=== PATIENT | female | born 1950 | race African-American/Black ===

== ENCOUNTER 2017-11-05 23:40 | Emergency (ER) | payer MEDICARE, MEDICAID ==
--- NOTE | 2017-11-06 00:11 | ER Document Report ---
ED General - General Chief Complaint: Palpitations Stated Complaint: BREATHING TROUBLE Time Seen by Provider: 11/05/17 23:50 Notes: Patient is a 67-year-old female with a past medical history of congestive heart failure, hypertension, who presents with palpitations and chest pain. The patient reports that the symptoms started approximately 1 hour prior to arrival but have now completely resolved spontaneously. The patient is a very difficult historian, is not unfamiliar with many of the details her past medical history. She is visiting here from [place]. She denies currently at the time of my assessment any chest pain, shortness of breath, nausea or vomiting. She states earlier the palpitations were a severe sensation of palpitations in her chest with associated throat burning and tightening in her chest. Nothing improves or worsens her symptoms when present. The patient is uncertain of whether or not she has been told that she has atrial fibrillation in the past. She has not contacted her general doctor regarding today's concerns. TRAVEL OUTSIDE OF THE [place] IN LAST 30 DAYS: No - Related Data Allergies/Adverse Reactions: No Known Allergies Allergy (Verified 11/05/17 23:55) Past Medical History - General Information source: Patient, Relative - Social History Smoking Status: Never Smoker Frequency of alcohol use: None Drug Abuse: None Lives with: Family Family History: Reviewed & Not Pertinent Review of Systems - Review of Systems Notes: Constitutional: Negative for fever. HENT: Negative for sore throat. Eyes: Negative for visual changes. Cardiovascular: Positive for chest pain and palpitations Respiratory: Positive for shortness of breath. Gastrointestinal: Negative for abdominal pain, vomiting or diarrhea. Genitourinary: Negative for dysuria. Musculoskeletal: Negative for back pain. Skin: Negative for rash. Neurological: Negative for headaches, weakness or numbness. 10 point ROS negative except as marked above and in HPI. Physical Exam - Vital signs Vitals: Resp BP Pulse Ox 22 H 156/68 H 98 11/06/17 00:03 11/06/17 00:03 11/06/17 00:03 Interpretation: Hypertensive Notes: PHYSICAL EXAMINATION: GENERAL: Well-appearing, well-nourished and in no acute distress. HEAD: Atraumatic, normocephalic. EYES: Pupils equal round and reactive to light, extraocular movements intact, sclera anicteric, conjunctiva are normal. ENT: nares patent, oropharynx clear without exudates. Moist mucous membranes. NECK: Normal range of motion, supple without lymphadenopathy LUNGS: Breath sounds clear to auscultation bilaterally and equal. No wheezes rales or rhonchi. HEART: Regular rate and rhythm without murmurs ABDOMEN: Soft, nontender, normoactive bowel sounds. No guarding, no rebound. No masses appreciated. EXTREMITIES: Normal range of motion, no pitting or edema. No cyanosis. NEUROLOGICAL: No focal neurological deficits. Moves all extremities spontaneously and on command. PSYCH: Normal mood, normal affect. SKIN: Warm, Dry, normal turgor, no rashes or lesions noted. Course - Re-evaluation Re-evalutation: 11/06/17 00:10 Presentation is consistent with paroxysmal atrial fibrillation as patient did come in and acute A. fib, confirmed on initial EKG at the time I went to see the patient though she had converted to normal sinus rhythm and her symptoms had also completely resolved. The patient states that she has been told that she has atrial fibrillation in the past but review of her medications shows that she is not on any anticoagulation nor on any rate control agents that would indicate this diagnosis or at least treatment of the diagnosis. She does carry diagnosis of congestive heart failure, hypertension, but no known history of coronary artery disease or PR. She does have peripheral vascular disease and had a stent placed in her right leg. Patient is currently symptomatic when I assess her. However, patient very recently converted into normal sinus rhythm became a symptomatic. She will receive an initial troponin a delta troponin. Will continue to monitor on telemetry during that time to ensure that she does not go back into atrial fibrillation. 11/06/17 03:47 Repeat troponin has elevated likely demand mediated although could be ischemic in origin. The patient had a CT of the chest performed because on initial chest x-ray showing a possible mass in the left lung. 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 I have contacted [facility] to speak with cardiothoracic surgery for guidance in what should be done in regards to this finding. The patient will require hospitalization due to up trending her troponin. 11/06/17 05:26 Patient has been discussed at length with the cardiothoracic surgeon at [facility] Dr. Carl.. He states that although this is not an emergency, this does need to be followed up with relative pace as an outpatient. I then went and spoke to the patient at length updated her on the diagnosis as well as her elevated troponin. I then spoke to her daughter on the phone. We reviewed all options and the family would like to be transferred to [facility] for definitive management both of her elevated troponin in the setting of A. fib with RVR as well as the new diagnosis of a left pulmonary arterial aneurysm. I have again paged out to [facility] and awaiting a callback for transfer. 11/06/17 05:34 I discussed again with [facility] transfer and Dr. Carl has accepted the patient. - Vital Signs Vital signs: Temp Pulse Resp BP Pulse Ox 97.4 F 18 152/67 H 97 11/06/17 04:00 11/06/17 05:01 11/06/17 05:01 11/06/17 05:01 - Laboratory Result Diagrams: 11/06/17 00:05 11/06/17 00:05 Laboratory results interpreted by me: 11/06/17 00:05 Chloride 109 H BUN 24 H Est GFR (Non-Af Amer) 54 L AST 60 H ALT 58 H - Diagnostic Test Radiology reviewed: Reports reviewed - EKG Interpretation by Me Additional EKG results interpreted by me: 11/06/17 03:48 EKG 1: Atrial fibrillation with rapid ventricular response. Rate 116. No ST elevations or depressions. LVH. EKG 2: Sinus rhythm. Rate 67. No ST elevations or depressions. QTC is 503. Critical Care Note - Critical Care Note Total time excluding time spent on procedures (mins): 38 Comments: Critical care time spent obtaining history from patient or surrogate, discussions with consultants, development of treatment plan with patient or surrogate, examination of patient, ordering and performing treatments and interventions, ordering and review of laboratory studies, re-evaluation of patient's condition, ordering and review of radiographic studies and review of old charts Discharge - Discharge Clinical Impression: Elevated troponin, Atrial fibrillation with rapid ventricular response, Pulmonary artery aneurysm Condition: Fair Disposition: [facility] Referrals: KATHIA CRAMER MD [Primary Care Provider] - Follow up as needed
--- NOTE | 2017-11-06 00:34 | RADIOLOGY REPORT (SQ) ---
XR CHEST 1 VIEW HISTORY: Shortness of breath. COMPARISON: None. FINDINGS/IMPRESSION: Approximately 11 x 6.7 cm well-circumscribed rounded mass in the left lung abutting the mediastinum and heart borders, which may represent loculated pleural effusion, aortic aneurysm, adenopathy, or lung mass. Recommend chest CT for further evaluation. Right lung is grossly clear. No acute osseous findings.
[2017-11-06 00:36] LABS: ABSOLUTE EOSINOPHILS # (AUTO) 0.2 10^3/uL (0.0-0.6); ABSOLUTE LYMPHOCYTES (AUTO) 2.4 10^3/uL (0.5-4.7); ABSOLUTE MONOCYTES (AUTO) 0.5 10^3/uL (0.1-1.4); ABSOLUTE NEUT (AUTO) 3.5 10^3/uL (1.7-8.2); BASOPHILS % (AUTO) 0.5 % (0-2); EOSINOPHILS % (AUTO) 2.4 % (0-6); HEMATOCRIT 38.8 % (36.0-47.0); LYMPHOCYTES % (AUTO) 36.1 % (13-45); MEAN CORPUSCULAR HEMOGLOBIN 29.2 pg (27.0-33.4); MEAN CORPUSCULAR HGB CONC 33.5 g/dL (32.0-36.0); MEAN CORPUSCULAR VOLUME 87 fl (80-97); MONOCYTES % (AUTO) 7.2 % (3-13); PLATELET COUNT 176 10^3/uL (150-450); RED BLOOD COUNT 4.45 10^6/uL (3.72-5.28); RED CELL DISTRIBUTION WIDTH 13.9 % (11.5-14.0); SEGMENTED NEUTROPHILS % (AUTO) 53.8 % (42-78); TOTAL CELLS COUNTED % (AUTO) 100 %; WHITE BLOOD COUNT 6.6 10^3/uL (4.0-10.5)
[2017-11-06 00:50] LABS: ALANINE AMINOTRANSFERASE 58 U/L (9-52); ALBUMIN 3.9 g/dL (3.5-5.0); ALKALINE PHOSPHATASE 110 U/L (38-126); ANION GAP 11 (5-19); ASPARTATE AMINO TRANSFERASE 60 U/L (14-36); BILIRUBIN,DIRECT 0.3 mg/dL (0.0-0.4); BILIRUBIN,TOTAL 0.7 mg/dL (0.2-1.3); BLOOD UREA NITROGEN 24 mg/dL (7-20); CALCIUM 9.2 mg/dL (8.4-10.2); CARBON DIOXIDE 24 mmol/L (22-30); CHLORIDE 109 mmol/L (98-107); GLUCOSE 104 mg/dL (75-110); TOTAL PROTEIN 7.2 g/dL (6.3-8.2)
--- NOTE | 2017-11-06 03:37 | RADIOLOGY REPORT (SQ) ---
EXAM DESCRIPTION: CT CHEST WITH IV CONTRAST COMPLETED DATE/TME: 11/06/2017 02:41 CLINICAL HISTORY: 67 years Female, eval lung mass Comparison: None. Technique: IV contrast. Coronal and sagittal reformat. This exam was performed according to our departmental dose-optimization program, which includes automated exposure control, adjustment of the mA and/or kV according to patient size and/or use of iterative reconstruction technique. [facility]: Dose Right [facility]: CareDose [facility]: Dose Right [facility]: Teradose 4D [facility]: Seeqpod LIMITATIONS: None Findings: Pulmonary arterial aneurysm includes the left main pulmonary artery measuring 5.6 x 6.1 cm, 4.9 cm diameter pulmonary outflow tract, 3.1 cm diameter right main pulmonary artery. Differential etiologies include idiopathic, pulmonary arterial hypertension, pulmonary valvular stenosis, vasculitis, and Behcet disease. Surgical consultation advised. Subsolid pulmonary nodules of the right mid lung field including measurements of 0.7 cm and 0.4 cm, image 24 of series 4. Follow-up chest CT recommended at 3-6 months. Small coronary arterial calcification. Inferior neck, axillae, mediastinum, airway, lymphatics, heart, upper abdomen, vasculature, and musculoskeleton appear otherwise unremarkable. Impression: 1. 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 Differential etiologies include idiopathic, pulmonary arterial hypertension, pulmonary valvular stenosis, vasculitis, and Behcet disease. Surgical consultation advised. 2. Subsolid pulmonary nodules of the right mid lung field including measurements of 0.7 cm and 0.4 cm, image 24 of series 4. Follow-up chest CT recommended at 3-6 months. 3. Small coronary arterial calcification.
--- NOTE | 2017-11-06 07:38 | EKG REPORT ---
SEVERITY:- ABNORMAL ECG - SINUS RHYTHM PROBABLE LEFT ATRIAL ABNORMALITY LEFT VENTRICULAR HYPERTROPHY BORDERLINE PROLONGED QT INTERVAL : Confirmed by: Bladimir Bates MD 06-Nov-2017 07:37:28
--- NOTE | 2017-11-06 07:38 | EKG REPORT ---
SEVERITY:- ABNORMAL ECG - ATRIAL FIBRILLATION, V-RATE 92-139 PROBABLE LVH WITH SECONDARY REPOL ABNRM PROLONGED QT INTERVAL : Confirmed by: Bladimir Bates MD 06-Nov-2017 07:38:04
--- NOTE | 2017-11-06 09:21 | ER Document Report ---
Doctor's Note Notes: 11/06/17 09:17 I was asked by the nursing staff to see the patient to put a note in as [facility] I reviewed the patient's chart found that she is here for palpitations and found to have paroxysmal atrial fibrillation. She is also found to have a pulmonary artery aneurysm and for this reason was being transferred. Blood pressures have remained somewhat high throughout the night and just as she was to be transported the nurse reported that the patient's blood pressure went to about 230 systolic. I requested that they find out what medication she takes, as none of her medications were recorded in the chart. 11/06/17 10:08 I did visit with the patient and found her to be quite pleasant in no distress. She tells me she did have a chest x-ray at another facility recently, but nothing was said about the mass that was seen on her chest x-ray today that led to the CT scan showing the pulmonary artery aneurysm. The nurse showed me the patient's medication bottles, she takes Catapres 0.1 mg , hydrochlorothiazide, and nifedipine. She was given hydralazine 20 mg IV and her Catapres 0.1 mg p.o. Shortly after that found the patient was gone, I have asked the nurse about what her pressure were prior to being discharged and she told me it was 200/90. I did not know the patient was can be transported before I had a chance to check back on her to see what her blood pressures were doing.
[2017-11-06] MEDS ORDERED: CLONIDINE HCL 0.1 MG TABLET PO ONE (09:33)
[2017-11-06] MEDS ORDERED: HYDRALAZINE HCL INJ/PF 20 MG/1 ML SDV IV ONE (09:33)
[2017-11-06 10:04] VITALS: BP 208/75
== END 2017-11-06 10:04 | disposition short-term general hospital (02) ==
LOC: ER 23:40
DX: I48.0 Paroxysmal atrial fibrillation (principal); I28.1 Aneurysm of pulmonary artery; R79.89 Other specified abnormal findings of blood chemistry; I50.9 Heart failure, unspecified; I11.0 Hypertensive heart disease with heart failure
CPT/HCPCS: 93005 ×2; 99285; 96374; 36415; 85025; 80053; 84484; 71045; 71260; 93010 ×2; A9270; J0360

== ENCOUNTER → 2018-04-24 | Outpatient (CLI) | payer MEDICARE ==
--- NOTE | 2018-04-24 12:12 | RADIOLOGY REPORT (SQ) ---
EXAM DESCRIPTION: L SPINE WHOLE COMPLETED DATE/TIME: 04/24/2018 11:59 am REASON FOR STUDY: CALUDICATION, LUMBAR RADICULOPATHY COMPARISON: None. NUMBER OF VIEWS: Five views including obliques. TECHNIQUE: AP, lateral, oblique, and sacral radiographic images acquired of the lumbar spine. LIMITATIONS: None. FINDINGS: MINERALIZATION: Normal. SEGMENTATION: Normal. No transitional anatomy. ALIGNMENT: Normal. VERTEBRAE: Maintained height. No fracture or worrisome bone lesion. DISCS: Multilevel disc space narrowing with osteophytes. POSTERIOR ELEMENTS: Pedicles and facets are intact. No pars defect or posterior arch defects. Facet arthropathy is present. HARDWARE: None in the spine. PARASPINAL SOFT TISSUES: Normal. PELVIS: Intact as visualized. No fractures or worrisome bone lesions. SI joints intact. OTHER: No other significant finding. IMPRESSION: SPONDYLOSIS WITHOUT BONE LESION OR FRACTURE. TECHNICAL DOCUMENTATION: JOB ID: [id number] [employer]- All Rights Reserved Reading location - IP/workstation name: [email or web address]
== END ==
LOC: RAD 11:38
PROVIDERS: ATTEND Student in an Organized Health Care Education/Training Program
DX: M48.062 Spinal stenosis, lumbar region with neurogenic claudication (principal); M54.16 Radiculopathy, lumbar region
CPT/HCPCS: 72110

== ENCOUNTER 2018-06-13 12:20 | Emergency (ER) | payer MEDICARE ==
--- NOTE | 2018-06-13 13:49 | ER Document Report ---
ED Medical Screen (RME) - General Chief Complaint: Leg Pain Stated Complaint: LEG PAIN Time Seen by Provider: 06/13/18 13:27 Primary Care Provider: TERESA ARRIAGA NP [Primary Care Provider] - Follow up as needed Mode of Arrival: Wheelchair Information source: Patient Notes: Patient is a 68-year-old female who presents with chief complaint of left lower extremity pain. Patient reports that is from the knee down. States this is a chronic problem has been ongoing for several years with worsening over the last few months. Patient denies any specific injury but states she would like to have an x-ray done on it. Exam: Dorsalis pedis pulse present, no edema or ecchymosis noted. I have greeted and performed a rapid initial assessment of this patient. A comprehensive ED assessment and evaluation of the patient, analysis of test results and completion of the medical decision making process will be conducted by additional ED providers. Dictation of this chart was performed using voice recognition software; therefore, there may be some unintended grammatical errors. TRAVEL OUTSIDE OF THE [place] IN LAST 30 DAYS: No - Related Data Allergies/Adverse Reactions: No Known Allergies Allergy (Verified 06/13/18 12:21) Past Medical History - Social History Chew tobacco use (# tins/day): No Frequency of alcohol use: None Drug Abuse: None - Past Medical History Cardiac Medical History: Reports: Hx Atrial Fibrillation, Hx Congestive Heart Failure, Hx Hypercholesterolemia, Hx Hypertension Renal/ Medical History: Denies: Hx Peritoneal Dialysis Physical Exam - Vital signs Vitals: Temp Pulse Resp BP Pulse Ox 98.0 F 71 18 177/84 H 96 06/13/18 12:43 06/13/18 12:43 06/13/18 12:43 06/13/18 12:43 06/13/18 12:43 Course - Vital Signs Vital signs: Temp Pulse Resp BP Pulse Ox 98.0 F 71 18 177/84 H 96 06/13/18 12:43 06/13/18 12:43 06/13/18 12:43 06/13/18 12:43 06/13/18 12:43 Doctor's Discharge - Discharge Referrals: TERESA ARRIAGA NP [Primary Care Provider] - Follow up as needed
--- NOTE | 2018-06-13 14:24 | RADIOLOGY REPORT (SQ) ---
EXAM DESCRIPTION: TIBIA FIBULA LEFT COMPLETED DATE/TIME: 06/13/2018 2:10 pm REASON FOR STUDY: pain COMPARISON: None. NUMBER OF VIEWS: Two views. TECHNIQUE: Two radiographic images acquired of the left tibia and fibula to include the knee and ank le in at least one projection. LIMITATIONS: None. FINDINGS: MINERALIZATION: Normal. BONES: No acute fracture or dislocation. Small calcaneal spurs. SOFT TISSUES: No obvious swelling or foreign body. OTHER: No other significant finding. IMPRESSION: 1. NEGATIVE STUDY OF THE LEFT TIBIA AND FIBULA. 2. Calcaneal spurs. TECHNICAL DOCUMENTATION: JOB ID: [id number] [employer]- All Rights Reserved Reading location - IP/workstation name: [email or web address]
[2018-06-13] MEDS ORDERED: TRAMADOL HCL 50 MG TABLET PO ONE (15:26)
--- NOTE | 2018-06-13 15:32 | ER Document Report ---
HPI - HPI Time Seen by Provider: 06/13/18 13:27 Pain Level: 4 Notes: Patient is a 68-year-old female who presents with chief complaint of left lower extremity pain. Patient reports that is from the knee down. States this is a chronic problem has been ongoing for several years with worsening over the last few months. Patient denies any specific injury but states she would like to have an x-ray done on it. - DERM Skin Color: Normal, [place] Past Medical History - General Information source: Patient - Social History Smoking Status: Current Every Day Smoker Chew tobacco use (# tins/day): No Frequency of alcohol use: None Drug Abuse: None Family History: Reviewed & Not Pertinent Patient has suicidal ideation: No Patient has homicidal ideation: No - Past Medical History Cardiac Medical History: Reports: Hx Atrial Fibrillation, Hx Congestive Heart Failure, Hx Hypercholesterolemia, Hx Hypertension Renal/ Medical History: Denies: Hx Peritoneal Dialysis Vertical Provider Document - CONSTITUTIONAL Notes: PHYSICAL EXAMINATION: GENERAL: Well-appearing, well-nourished and in no acute distress. HEAD: Atraumatic, normocephalic. EYES: Pupils equal round extraocular movements intact, conjunctiva are normal. ENT: Nares patent NECK: Normal range of motion LUNGS: No respiratory distress Musculoskeletal: Normal range of motion, no swelling, erythema or ecchymosis noted to area of pain. NEUROLOGICAL: Normal speech, normal gait. PSYCH: Normal mood, normal affect. SKIN: Warm, Dry, normal turgor, no rashes or lesions noted. - INFECTION CONTROL TRAVEL OUTSIDE OF THE [place] IN LAST 30 DAYS: No Course - Re-evaluation Re-evalutation: X-ray is negative for any acute fracture or dislocation. Patient requesting to be discharged home at this time. - Vital Signs Vital signs: Temp Pulse Resp BP Pulse Ox 98.0 F 71 18 177/84 H 96 06/13/18 12:43 06/13/18 12:43 06/13/18 12:43 06/13/18 12:43 06/13/18 12:43 Discharge - Discharge Clinical Impression: Leg pain Qualifiers: Laterality: left Qualified Code(s): M79.605 - Pain in left leg Condition: Stable Disposition: HOME, SELF-CARE Additional Instructions: The x-ray was negative today of your leg. Please follow-up with your primary care for further management of your chronic leg pain. We did not do a venous Doppler ultrasound today as you do not have any leg swelling. Please take medication as prescribed. Prescriptions: Gabapentin [Neurontin 300 mg Capsule] 300 mg PO Q8 #30 cap Referrals: TERESA ARRIAGA, CHIEF METEOROLOGIST [Primary Care Provider] - Follow up as needed
[2018-06-13 15:43] VITALS: BP 156/82
== END 2018-06-13 15:43 | disposition home or self-care (01) ==
LOC: ER 12:20
DX: M79.605 Pain in left leg (principal); F17.200 Nicotine dependence, unspecified, uncomplicated; I50.9 Heart failure, unspecified; I11.0 Hypertensive heart disease with heart failure
CPT/HCPCS: 99283; 73590; A9270

== ENCOUNTER 2018-06-20 19:45 | Emergency (ER) | payer MEDICARE ==
[2018-06-20] MEDS ORDERED: MORPHINE SULFATE 10 MG/ML INJ IV ONE (20:14)
[2018-06-20] MEDS ORDERED: FENTANYL CITRATE INJ/PF 100 MCG/2 ML AMPUL IM ONE (20:25)
--- NOTE | 2018-06-20 20:25 | ER Document Report ---
ED Medical Screen (RME) - General Chief Complaint: Leg Swelling Stated Complaint: LEFT LEG PAIN Time Seen by Provider: 06/20/18 20:10 Primary Care Provider: GAB ROBLES DO [Primary Care Provider] - Follow up as needed TRAVEL OUTSIDE OF THE [place] 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 Patient states that the swelling began over the past week. She was eval'd this past week and had a negative XR, but the swelling started thereafter. Patient states that she is having severe pain in the foot/lower extremity. Denies REN, fever, neck pain, URI, CP, SOB, Abd pain, or rash. I have treated and performed a rapid initial assessment of this patient. A comprehensive ED assessment and evaluation of the patient, analysis of test results and completion of medical decision making process will be conducted by additional ED providers. Doppler performed for pulses by myself as well as Mingo WEINSTEIN and we could not hear anything significant. Foot is otherwise not cold. US's ordered for venous and arterial. PHYSICAL EXAMINATION: GENERAL: Well-appearing, well-nourished and in no acute distress. A&Ox4. Answers questions appropriately. LUNGS: Breath sounds clear to auscultation bilaterally and equal. No wheezes rales or rhonchi. HEART: Regular rate and rhythm without murmurs, rubs, gallops. Extremities: 1-2+ pitting edema Left foot. + tenderness left foot and calf. NEUROLOGICAL: Normal speech, normal gait. PSYCH: Normal mood, normal affect. - Related Data Allergies/Adverse Reactions: No Known Allergies Allergy (Verified 06/13/18 12:21) Past Medical History - Past Medical History Cardiac Medical History: Reports: Hx Atrial Fibrillation, Hx Congestive Heart Failure, Hx Hypercholesterolemia, Hx Hypertension Renal/ Medical History: Denies: Hx Peritoneal Dialysis Physical Exam - Vital signs Vitals: Temp Pulse Resp BP Pulse Ox 98.0 F 97 20 223/90 H 96 06/20/18 19:54 06/20/18 19:54 06/20/18 19:54 06/20/18 19:54 06/20/18 19:54 Course - Vital Signs Vital signs: Temp Pulse Resp BP Pulse Ox 98.0 F 97 20 223/90 H 96 06/20/18 19:54 06/20/18 19:54 06/20/18 19:54 06/20/18 19:54 06/20/18 19:54 Doctor's Discharge - Discharge Referrals: GAB ROBLES, [Primary Care Provider] - Follow up as needed
[2018-06-20 21:04] LABS: ABSOLUTE EOSINOPHILS # (AUTO) 0.1 10^3/uL (0.0-0.6); ABSOLUTE LYMPHOCYTES (AUTO) 2.5 10^3/uL (0.5-4.7); ABSOLUTE MONOCYTES (AUTO) 0.7 10^3/uL (0.1-1.4); ABSOLUTE NEUT (AUTO) 4.6 10^3/uL (1.7-8.2); BASOPHILS % (AUTO) 0.5 % (0-2); EOSINOPHILS % (AUTO) 1.3 % (0-6); LYMPHOCYTES % (AUTO) 31.4 % (13-45); MEAN CORPUSCULAR HEMOGLOBIN 29.4 pg (27.0-33.4); MEAN CORPUSCULAR VOLUME 87 fl (80-97); MONOCYTES % (AUTO) 8.3 % (3-13); PLATELET COUNT 233 10^3/uL (150-450); RED BLOOD COUNT 5.08 10^6/uL (3.72-5.28); RED CELL DISTRIBUTION WIDTH 14.2 % (11.5-14.0); SEGMENTED NEUTROPHILS % (AUTO) 58.5 % (42-78); TOTAL CELLS COUNTED % (AUTO) 100 %; WHITE BLOOD COUNT 7.8 10^3/uL (4.0-10.5)
[2018-06-20 21:18] LABS: INTERNATIONAL RATION (INR) 0.88; PARTIAL THROMBOPLASTIN TIME 29.7 SEC (23.5-35.8); PROTHROMBIN TIME 12.4 SEC (11.4-15.4)
[2018-06-20 21:32] LABS: ALANINE AMINOTRANSFERASE 67 U/L (9-52); ALBUMIN 4.4 g/dL (3.5-5.0); ALKALINE PHOSPHATASE 139 U/L (38-126); ANION GAP 9 (5-19); ASPARTATE AMINO TRANSFERASE 106 U/L (14-36); BILIRUBIN,DIRECT 0.4 mg/dL (0.0-0.4); BILIRUBIN,TOTAL 0.8 mg/dL (0.2-1.3); BLOOD UREA NITROGEN 17 mg/dL (7-20); CALCIUM 10.1 mg/dL (8.4-10.2); CARBON DIOXIDE 27 mmol/L (22-30); CHLORIDE 104 mmol/L (98-107); GLUCOSE 117 mg/dL (75-110); POTASSIUM 3.9 mmol/L (3.6-5.0); SODIUM 139.9 mmol/L (137-145)
--- NOTE | 2018-06-20 22:55 | ER Document Report ---
ED General - General Chief Complaint: Leg Swelling Stated Complaint: LEFT LEG PAIN Time Seen by Provider: 06/20/18 20:10 Primary Care Provider: GAB ROBLES DO [Primary Care Provider] - Follow up as needed Notes: Patient is a 68-year-old female With a past medical history of hypertension, hyperlipidemia, obesity, every day smoker who presents with 4 days of progressively worsening pain and swelling of her left lower extremity. The patient reports that she has a constant, severe, throbbing pain to the affected area worsened by walking or touching the area. Nothing is been noted to improve the pain. Symptoms started gradually, have gotten progressively worse since onset. Was attempted to see by her primary care doctor today but apparently was late for her appointment and her primary doctor refused to see her. This prompted family to bring her here to the emergency department. No history of similar symptoms in the past. No known history of peripheral vascular disease. TRAVEL OUTSIDE OF THE [place] IN LAST 30 DAYS: No - Related Data Allergies/Adverse Reactions: No Known Allergies Allergy (Verified 06/13/18 12:21) Past Medical History - General Information source: Patient - Social History Smoking Status: Current Every Day Smoker Frequency of alcohol use: None Drug Abuse: None Lives with: Family Family History: Reviewed & Not Pertinent - Past Medical History Cardiac Medical History: Reports: Hx Atrial Fibrillation, Hx Congestive Heart Failure, Hx Hypercholesterolemia, Hx Hypertension Renal/ Medical History: Denies: Hx Peritoneal Dialysis Review of Systems - Review of Systems Notes: Constitutional: Negative for fever. HENT: Negative for sore throat. Eyes: Negative for visual changes. Cardiovascular: Negative for chest pain. Respiratory: Negative for shortness of breath. Gastrointestinal: Negative for abdominal pain, vomiting or diarrhea. Genitourinary: Negative for dysuria. Musculoskeletal: Positive for left lower extreme knee pain and swelling Skin: Positive for discoloration of the left foot Neurological: Negative for headaches, weakness or numbness. 10 point ROS negative except as marked above and in HPI. Physical Exam - Vital signs Vitals: Temp Pulse Resp BP Pulse Ox 98.0 F 97 20 223/90 H 96 06/20/18 19:54 06/20/18 19:54 06/20/18 19:54 06/20/18 19:54 06/20/18 19:54 Interpretation: Hypertensive Notes: PHYSICAL EXAMINATION: GENERAL: Appears moderately uncomfortable but in no acute distress HEAD: Atraumatic, normocephalic. EYES: Pupils equal round and reactive to light, extraocular movements intact, sclera anicteric, conjunctiva are normal. ENT: nares patent, oropharynx clear without exudates. Moderately dry mucous membranes. NECK: Normal range of motion, supple without lymphadenopathy LUNGS: Breath sounds clear to auscultation bilaterally and equal. No wheezes rales or rhonchi. HEART: No palpable DP pulse in the left foot. Palpable popliteal pulse, femoral pulse bilaterally. Weak but present DP pulse on the right. ABDOMEN: Soft, nontender, normoactive bowel sounds. No guarding, no rebound. No masses appreciated. EXTREMITIES: There is limited dorsi and plantar flexion of the left ankle although she is able to complete this range of motion with significant pain. Right ankle exam unremarkable. There is 1-2+ pitting edema at the level of the mid tibia down on the left. Mild tenderness on palpation of the calf although it is soft and compressible. The digits of the left lower extremity appear somewhat ashen, dark in color. NEUROLOGICAL: No focal neurological deficits. Moves all extremities spontaneously and on command. PSYCH: Normal mood, normal affect. SKIN: Warm, Dry, normal turgor, see above for skin exam on left foot Course - Re-evaluation Re-evalutation: 06/20/18 22:44 Patient presents with 4 days of progressively worsening pain and swelling to the distal aspect of her left lower cavity below the level of the knee. The venous Doppler has informed me that the patient has no blood flow below the level of her knee, she is unable to get pulses in any of these locations. Patient does not have a palpable DP pulse. The left foot is substantially cooler than the right. The patient is otherwise nontoxic in appearance. Does actively smoke, has a history of hypertension, hyperlipidemia. I contacted kevin in [facility]. [facility] does not have any beds for vascular patients and [facility] so me will be greater than 48 hours. I will contact [facility] to see if they can facilitate more rapid transfer as I do not believe it would be safe for the patient to stay here for an extended period of time with an ischemic foot. 06/20/18 23:04 I have contacted [facility] and they likewise have an extended weight almost all the facilities except the [facility]. There are determining whether or not they are able to take these patients to that facility if they have vascular support. [facility], [facility], [facility], and none of which are able to accept the patient. Due to did call back to confirm that the [facility] does not have vascular support. I did call [facility] and they likewise stated there would be a weight of greater than 24 hours. I am contacting [facility] as an alternative option. If they do not have ability to accept this patient I am effectively out of options for a rapid transfer. 06/21/18 01:00 I have continued to be on the phone back and forth with [facility] on 4 separate occasions. I did speak to the clinical wild life manager who is trying to resolve the issue. If [facility] likewise is unable to care for this patient I will contact [facility] and [facility] again and have these patients placed on wait list with emphasis that they need to be seen as quickly as possible and that further delays in care will result in worse outcomes. I continue to keep the patient updated on current status. 06/21/18 02:28 I was able to get the patient except by Dr. Hansen at [facility]. They working on making a bed for the patient. 06/21/18 03:53 Exam remains unchanged. Bed availability will not occur until after 6 AM. Case has been discussed with Dr. Plummer will monitor patient until a.m. arrives. - Vital Signs Vital signs: Temp Pulse Resp BP Pulse Ox 98.5 F 97 19 179/92 H 91 L 06/20/18 21:16 06/20/18 19:54 06/21/18 01:01 06/21/18 01:01 06/21/18 01:01 - Laboratory Result Diagrams: 06/20/18 20:50 06/20/18 20:50 Laboratory results interpreted by me: 06/20/18 06/20/18 20:50 20:50 RDW 14.2 H Glucose 117 H AST 106 H ALT 67 H Alkaline Phosphatase 139 H - Diagnostic Test Radiology reviewed: Reports reviewed Critical Care Note - Critical Care Note Total time excluding time spent on procedures (mins): 40 Comments: Critical care time spent obtaining history from patient or surrogate, discussions with consultants at multiple facilities, development of treatment plan with patient or surrogate, evaluation of patient's response to treatment, examination of patient, ordering and performing treatments and interventions, ordering and review of laboratory studies, re-evaluation of patient's condition, ordering and review of radiographic studies and review of old charts Discharge - Discharge Clinical Impression: Arterial insufficiency of lower extremity, Ischemia of left lower extremity Condition: Fair Disposition: [facility] Referrals: GAB ROBLES DO [Primary Care Provider] - Follow up as needed
[2018-06-20] MEDS ORDERED: HEPARIN SOD (PORCINE) 1,000 UNIT/ML 10 ML VIAL IV ONE (23:02)
[2018-06-20] MEDS ORDERED: HEPARIN SODIUM,PORCINE/D5W 25,000 UNIT/250 ML RTUINJ IV PRN (23:02)
[2018-06-21] MEDS: MORPHINE SULFATE 10 MG/ML INJ IV PRN ×3 (00:32→08:25)
[2018-06-21] MEDS ORDERED: HEPARIN SOD (PORCINE) 1,000 UNIT/ML 10 ML VIAL IV PRN (02:02)
[2018-06-21 09:01] VITALS: BP 219/102
--- NOTE | 2018-06-21 09:36 | XCELERA REPORT ---
[address] [place] [facility] [address] Lower Extremity Venous Evaluation Procedure: Color flow and duplex imaging of the veins of the left lower extremity as well as the right Common Femoral vein. Right Sided Venous Evaluation The right common femoral vein is fully compressible. Spontaneous and phasic flow is present in the right common femoral vein. Left Sided Venous Evaluation Normal vessel filling wall to wall, compression and augmentation as well as Colour flow down to the infrageniculate veins. Interpretation Summary No duplex evidence of DVT or obstruction in the left lower extremity nor in the right Common Femoral vein. Name: LAUERN DOMINGUEZ Age: 68 yrs Gender: Female : 1950 Patient Status: Emergency Patient Location: ER Study Date: 06/20/2018 08:55 PM Reason For Study: LLE pain and foot swelling Ordering Physician: MARIO KONG Performed By: Randi Argueta : MARIO KONG > Shola Dave
--- NOTE | 2018-06-21 16:13 | XCELERA REPORT ---
[address] [address] Lower Extremity Arterial Evaluation Name: LAUREN DOMINGUEZ Age: 68 yrs Gender: Female : 1950 Patient Status: Emergency Patient Location: ER Study Date: 06/20/2018 09:17 PM Procedure: A color flow and duplex scan of the lower extremity arteries was performed on the left with velocity and waveform anaylsis. Reason For Study: left lower ext swelling Ordering Physician: MARIO KONG Performed By: Randi Argueta Measurements and Calculations Right Left GIG TENDER PSV 37.1 cm/sec Prox PFA PSV -33.3 cm/sec Prox SFA PSV 35.2 cm/sec Mid SFA PSV -27.5 cm/sec Left Side Arterial Evaluation Very low velocity, with spectral broadening, and Monophasic waveforms noted from the Common Femoral artery to the Femoral. No flow appreciated in the infrageniculate vessels . Interpretation Summary Severe, limb threatening ischemia in the left lower extremity. the Patient appropriately transferred for urgent Vascular intervention. : MARIO KONG > Shola Dave
== END 2018-06-21 09:01 | disposition short-term general hospital (02) ==
LOC: ER 19:45
DX: I73.9 Peripheral vascular disease, unspecified (principal); I99.8 Other disorder of circulatory system; M79.89 Other specified soft tissue disorders; M79.605 Pain in left leg; M25.561 Pain in right knee; I10 Essential (primary) hypertension; F17.200 Nicotine dependence, unspecified, uncomplicated
CPT/HCPCS: 96376; 99291; 96372; 96375; 96365; 96366; 36415; 85025; 85610; 85730; 80053; 93971 ×2; 93926 ×2; J1644 ×2; J3010; J2270

== ENCOUNTER → 2018-08-01 | Outpatient (CLI) | payer MEDICARE ==
--- NOTE | 2018-08-01 15:28 | WOMENS IMAGING REPORT ---
EXAM DESCRIPTION: 3D SCREENING MAMMO BILAT COMPLETED DATE/TIME: 08/01/2018 2:45 pm REASON FOR STUDY: Z12.31 ROUTINE 3D BILATERAL SCREENING Z12.31 ENCNTR SCREEN MAMMOGRAM FOR MALIGNAN T NEOPLASM OF MAUREEN COMPARISON: None. EXAM PARAMETERS: Views: Standard craniocaudal and mediolateral oblique views of each breast recorded using digital acquisition and breast tomosynthesis. Read with the assistance of CAD. .[facility] - R2 Chemistry Manager Version 9.2 LIMITATIONS: None. FINDINGS: No suspicious masses, suspicious calcifications or architectural distortion. No areas of c oncern. IMPRESSION: Assessment: Negative MAMMOGRAM. BIRADS 1. BREAST DENSITY: b. There are scattered areas of fibroglandular density. BIRAD: 1 NEGATIVE RECOMMENDATION: ROUTINE SCREENING COMMENT: The patient has been notified of the results by letter per MQSA requirements. Additional no tification policies are in place for contacting patient with suspicious or incomplete findings. Quality ID #225: The [employer] recommends an annual screening mammogram for women aged 40 years or over. This facility utilizes a reminder system to ensure that all patients receive reminder letters, and/or direct phone calls for appointments. This includes reminders for routine scr eening mammograms, diagnostic mammograms, or other Breast Imaging Interventions when appropriate. Th is patient will be placed in the appropriate reminder system. TECHNICAL DOCUMENTATION: FINDING NUMBER: (1) ASSESSMENT: (1) JOB ID: [id number] [employer]- All Rights Reserved Reading location - IP/workstation name: [email or web address]
== END ==
LOC: WI 14:22
PROVIDERS: ATTEND Internal Medicine Geriatric Medicine
DX: Z12.31 Encounter for screening mammogram for malignant neoplasm of breast (principal)
CPT/HCPCS: 77063; 77067

== ENCOUNTER → 2018-08-01 | Outpatient (CLI) | payer MEDICARE ==
--- NOTE | 2018-08-01 15:57 | RADIOLOGY REPORT (SQ) ---
EXAM DESCRIPTION: CT CHEST WITH COMPLETED DATE/TIME: 08/01/2018 3:27 pm REASON FOR STUDY: R91.8 OTHER NONSPECIFIC ABNORMAL FINDING OF LUNG FIELD R91.8 OTHER NONSPECIFIC AB NORMAL FINDING OF LUNG FIELD COMPARISON: 11/06/2017 TECHNIQUE: CT scan of the chest performed using helical scanning technique with dynamic intravenous contrast injection. Images reviewed with lung, soft tissue and bone windows. Reconstructed coronal and sagittal MPR and MIP images reviewed. All images stored on PACS. All CT scanners at this facility use dose modulation, iterative reconstruction, and/or weight based d osing when appropriate to reduce radiation dose to as low as reasonably achievable (ALARA). [facility]: Dose Right [facility]: CareDose [facility]: Dose Right [facility]: Teradose 4D [facility]: [employer] CONTRAST TYPE AND DOSE: contrast/concentration: Isovue 350.00 mg/ml; Total Contrast Delivered: 80.0 ml; Total Saline Delivered: 55.0 ml RENAL FUNCTION: GFR > 60. RADIATION DOSE: CT Rad equipment meets quality standard of care and radiation dose reduction techniq ues were employed. CTDIvol: 16.7 mGy. DLP: 642 mGy-cm. . LIMITATIONS: Motion. FINDINGS: LUNGS AND PLEURA: Stable ground-glass nodules in the right lower lobe near the fissure on image 50 and 51. Largest 7 mm. HILAR AND MEDIASTINAL STRUCTURES: No identified masses or abnormal nodes. HEART AND VASCULAR STRUCTURES: Stable dilatation of the main pulmonary arterial segment. HARDWARE: None in the chest. UPPER ABDOMEN: No significant findings. Limited exam. THYROID AND OTHER SOFT TISSUES: No masses. No adenopathy. BONES: No significant finding. OTHER: No other significant finding. IMPRESSION: 1. Stable pulmonary nodules. No progression. 2. Stable pulmonary arterial aneurysm. TECHNICAL DOCUMENTATION: JOB ID: [id number] Quality ID # [id number]: Final reports with documentation of one or more dose reduction techniques (e.g., Au tomated exposure control, adjustment of the mA and/or kV according to patient size, use of iterative reconstruction technique) 2010 [employer]- All Rights Reserved Reading location - IP/workstation name: [email or web address]
== END ==
LOC: RAD 14:39
PROVIDERS: ATTEND Internal Medicine Geriatric Medicine
DX: I28.1 Aneurysm of pulmonary artery (principal); R91.8 Other nonspecific abnormal finding of lung field
CPT/HCPCS: 71260; 82565

== ENCOUNTER 2018-10-17 22:48 | Inpatient (IN) | payer MEDICARE ==
[2018-10-17] MEDS: MAGNESIUM SULFATE/D5W 1 GM/100 ML RTUPB IV SCH (23:00)
[2018-10-17] MEDS ORDERED: METHYLPREDNISOLONE INJ 125 MG/2 ML SDV IV ONE (23:06)
[2018-10-17] MEDS ORDERED: IPRATROPIUM/ALBUTEROL 0.5-2.5 MG/3 ML AMPUL NEB ONE ×3 (23:06→23:07)
--- NOTE | 2018-10-17 23:15 | ER Document Report ---
ED Respiratory Problem - General Chief Complaint: Shortness Of Breath Stated Complaint: SHORTNESS OF BREATH Time Seen by Provider: 10/17/18 23:03 Notes: Patient is a 68-year-old female that comes to the emergency department for chief complaint of shortness of breath. She states she is had some shortness of breath for the past couple of days but became much worse today, she states now it is very difficult to breathe. She has some tightness across her chest. She denies fever/chills, nausea/vomiting. She smokes, has a history of COPD, is not on home oxygen. She denies hospitalizations for COPD or intubation. Remaining medical history includes hypertension, atrial fibrillation, on Eliquis. She lives at home, her son-in-law brought her in. TRAVEL OUTSIDE OF THE [place] IN LAST 30 DAYS: No - Related Data Allergies/Adverse Reactions: No Known Allergies Allergy (Verified 06/13/18 12:21) Past Medical History - General Information source: Patient - Social History Smoking Status: Current Every Day Smoker Smoking Education Provided: Yes - <3 min Frequency of alcohol use: None Lives with: Family Family History: Reviewed & Not Pertinent - Past Medical History Cardiac Medical History: Reports: Hx Atrial Fibrillation, Hx Congestive Heart Failure, Hx Hypercholesterolemia, Hx Hypertension Renal/ Medical History: Denies: Hx Peritoneal Dialysis - Immunizations Immunizations up to date: Yes Hx Diphtheria, Pertussis, Tetanus Vaccination: Yes Review of Systems - Review of Systems Constitutional: No symptoms reported EENT: No symptoms reported Cardiovascular: No symptoms reported Respiratory: See HPI Gastrointestinal: No symptoms reported Genitourinary: No symptoms reported Female Genitourinary: No symptoms reported Musculoskeletal: No symptoms reported Skin: No symptoms reported Hematologic/Lymphatic: No symptoms reported Neurological/Psychological: No symptoms reported Physical Exam - Vital signs Vitals: Temp Pulse Resp BP Pulse Ox 98.0 F 95 24 H 170/79 H 77 L 10/17/18 22:58 10/17/18 22:58 10/17/18 22:58 10/17/18 22:58 10/17/18 22:58 - Notes Notes: GENERAL: Alert appears to be in distress HEAD: Normocephalic, atraumatic. EYES: Pupils equal, round, and reactive to light. Extraocular movements intact. ENT: Oral mucosa moist, tongue midline. Oropharynx unremarkable. Airway patent. Nares patent, no nasal septal hematoma, TM's intact. NECK: Full range of motion. Supple. Trachea midline. LUNGS: Mild expiratory wheezes throughout, no obvious rales or rhonchi. Occasional cough. Labored breathing with tachypnea, obvious respiratory distress. HEART: Regular rate and rhythm. No murmur ABDOMEN: Soft, non-tender. Non-distended. EXTREMITIES: Moves all 4 extremities spontaneously. No edema, normal radial and dorsalis pedis pulses bilaterally. No cyanosis. BACK: no cervical, thoracic, lumbar midline tenderness. No saddle anesthesia, normal distal neurovascular exam. NEUROLOGICAL: Alert and oriented x3. Cranial nerves II through XII grossly intact. SKIN: Warm, dry, normal turgor. No rashes or lesions noted. Course - Re-evaluation Re-evalutation: 10/17/18 23:15 Patient was in severe respiratory distress when I first evaluated her. She was 90% on 2 L nasal cannula with labored breathing and tachypnea. Expiratory wheezes throughout with decreased breath sounds. Consistent with severe COPD ex acerbation. Starting duo nebs, magnesium, Solu-Medrol, called for BiPAP On BiPAP patient began to significantly improved. She still has wheezing but I hear much improved air movement, her respiratory effort has significantly decreased, her hypoxia has resolved. She appears much improved, she states she feels much better. We will continue to monitor. Chest x-ray nonspecific, EKG without significant change from prior, troponin negative. Venous blood gas nonspecific. CBC unremarkable. Appears to be severe COPD exacerbation with acute respiratory failure. Reevaluated patient again, she is maintaining well on BiPAP. Will discuss with hospitalist for admission, patient's primary care provider is Dr. Chapman, Dr. Mcwilliams is on-call for him. 10/18/18 00:[address] Mcwilliams, he accepts patient to [facility] full admission. - Vital Signs Vital signs: Temp Pulse Resp BP Pulse Ox 98.0 F 95 10 L 123/76 97 10/17/18 22:58 10/17/18 22:58 10/18/18 01:01 10/18/18 01:01 10/18/18 01:01 - Laboratory Result Diagrams: 10/17/18 23:15 10/17/18 23:15 Laboratory results interpreted by me: 10/17/18 10/17/18 10/17/18 23:15 23:15 23:15 RDW 14.4 H VBG HCO3 32.1 H Chloride 97 L Carbon Dioxide 31 H Est GFR (Non-Af Amer) 58 L Glucose 132 H Discharge - Discharge Clinical Impression: Wheezing, Hypoxia, Respiratory distress Condition: Stable Disposition: ADMITTED INPATIENT Admitting Provider: Mcwilliams Unit Admitted: [facility]
[2018-10-17 23:30] LABS: VENOUS BLOOD BASE EXCESS 4.3 mmol/L; VENOUS BLOOD HCO3 32.1 mmol/L (20-32); VENOUS BLOOD PCO2 62.1 mmHg (35-63); VENOUS BLOOD PH 7.33 (7.30-7.42)
[2018-10-17 23:31] LABS: ABSOLUTE EOSINOPHILS # (AUTO) 0.4 10^3/uL (0.0-0.6); ABSOLUTE LYMPHOCYTES (AUTO) 2.9 10^3/uL (0.5-4.7); ABSOLUTE MONOCYTES (AUTO) 0.8 10^3/uL (0.1-1.4); ABSOLUTE NEUT (AUTO) 6.1 10^3/uL (1.7-8.2); BASOPHILS % (AUTO) 0.4 % (0-2); EOSINOPHILS % (AUTO) 3.7 % (0-6); HEMATOCRIT 41.1 % (36.0-47.0); HEMOGLOBIN 13.3 g/dL (12.0-15.5); LYMPHOCYTES % (AUTO) 28.1 % (13-45); MEAN CORPUSCULAR HEMOGLOBIN 28.3 pg (27.0-33.4); MEAN CORPUSCULAR HGB CONC 32.3 g/dL (32.0-36.0); MEAN CORPUSCULAR VOLUME 88 fl (80-97); MONOCYTES % (AUTO) 7.9 % (3-13); PLATELET COUNT 181 10^3/uL (150-450); RED BLOOD COUNT 4.69 10^6/uL (3.72-5.28); RED CELL DISTRIBUTION WIDTH 14.4 % (11.5-14.0); SEGMENTED NEUTROPHILS % (AUTO) 59.9 % (42-78); TOTAL CELLS COUNTED % (AUTO) 100 %; WHITE BLOOD COUNT 10.1 10^3/uL (4.0-10.5)
[2018-10-17 23:48] LABS: ANION GAP 10 (5-19); BLOOD UREA NITROGEN 20 mg/dL (7-20); CALCIUM 9.3 mg/dL (8.4-10.2); CARBON DIOXIDE 31 mmol/L (22-30); CHLORIDE 97 mmol/L (98-107); GLUCOSE 132 mg/dL (75-110); POTASSIUM 3.7 mmol/L (3.6-5.0)
--- NOTE | 2018-10-17 23:58 | RADIOLOGY REPORT (SQ) ---
CLINICAL HISTORY: shortness of breath COMPARISON: CT, August 01, 2018. TECHNIQUE: XR CHEST 1 VIEW 10/17/2018 11:06 PM CDT FINDINGS: The heart is enlarged. There is enlargement of the pulmonary artery.Lungs are clear without consolidation, atelectasis, mass or edema. There is no pleural effusion. There is no pneumothorax. There are no acute osseous findings. IMPRESSION: No pneumonia.
[2018-10-18] MEDS: MAGNESIUM SULFATE/D5W 1 GM/100 ML RTUPB IV SCH (00:02)
[2018-10-18] MEDS ORDERED: ACETAMINOPHEN 325 MG TABLET PO PRN (00:23)
[2018-10-18] MEDS ORDERED: CEFEPIME 1 GM/D5W RTU 1 GM/50 ML RTUPB IV ONE (00:45)
[2018-10-18] MEDS: LEVALBUTEROL HCL NEB 1.25 MG/3 ML AMPUL NEB SCH ×5 (04:04→20:26)
[2018-10-18] MEDS: METHYLPREDNISOLONE INJ 40 MG/1 ML SDV IV SCH ×3 (05:54→21:08)
--- NOTE | 2018-10-18 08:02 | EKG REPORT ---
SEVERITY:- ABNORMAL ECG - SINUS RHYTHM VENTRICULAR PREMATURE COMPLEX PROBABLE LEFT ATRIAL ABNORMALITY BORDERLINE R WAVE PROGRESSION, ANTERIOR LEADS BORDERLINE PROLONGED QT INTERVAL NONSPECIFIC LATERAL ST-T CHANGES : Confirmed by: Bladimir Bates MD 18-Oct-2018 08:01:55
--- NOTE | 2018-10-18 10:39 | PDOC H&P ---
History of Present Illness Admission Date/PCP: 10/18/18 00:37 BHAKTI GARCIA Patient complains of: Shortness of the breath History of Present Illness: LAUREN DOMINGUEZ is a 68 year old female Is a 68-year-old female a patient of Dr. Guerrero with a history of the COPD and a chronic smoker history of the hypertension's hyperlipidemia and history of the chronic A. fib on a chronic Eliquis came to the emergency department with a complaining of shortness of the breath for the last couple of days and wheezing and not feeling well In the emergency department patient initially with a severe respiratory distress with the O2 sat is 90% on 2 L nasal cannula and dropped to up to the below 80%'s and required a BiPAP Patient's response very well with the BiPAP in the respiratory treatment and a Solu-Medrol and patient at this point ER physicians call for admissions I saw the patient on the floor patient is doing much better back to the nasal cannula denied any chest pain no short of breath still having some cough Still continues to smoke Patient with a history of the chronic A. fib and currently on Eliquis but denied any heart attacks denied any strokes Past Medical History Cardiac Medical History: Reports: Atrial Fibrillation, Congestive Heart Failure, Hyperlipidema, Hypertension Social History Lives with: Family Smoking Status: Current Every Day Smoker Cigarettes Packs Per Day: 0.5 Number of Years Smokin Last Time Smoked: yesterday Frequency of Alcohol Use: None Hx Recreational Drug Use: No Drugs: None Hx Prescription Drug Abuse: No Family History Family History: Reviewed & Not Pertinent Parental Family History Reviewed: Yes Children Family History Reviewed: Yes Sibling(s) Family History Reviewed.: Yes Medication/Allergy Home Medications: Amlodipine Besylate/Valsartan [Amlodipine-Valsartan 10-320 mg] 1 tab PO DAILY 10/18/18 Apixaban [Eliquis 5 mg Tablet] 5 mg PO BID 10/18/18 Carvedilol [Coreg 6.25 mg Tablet] 6.25 mg PO Q12 10/18/18 Gabapentin [Neurontin 400 mg Capsule] 400 mg PO TID 10/18/18 Hydralazine HCl [Apresoline 25 mg Tablet] 25 mg PO Q8 10/18/18 Hydrochlorothiazide [Hydrodiuril 25 mg Tablet] 25 mg PO DAILY 10/18/18 Lisinopril [Zestril] 40 mg PO DAILY 10/18/18 Tramadol HCl [Ultram 50 mg Tablet] 50 mg PO Q6HP PRN 10/18/18 Allergies/Adverse Reactions: No Known Allergies Allergy (Verified 06/13/18 12:21) Review of Systems Constitutional: ABSENT: chills, fever(s), headache(s), weight gain, weight loss Eyes: ABSENT: visual disturbances Ears: ABSENT: hearing changes Cardiovascular: ABSENT: chest pain, dyspnea on exertion, edema, orthropnea, palpitations Respiratory: PRESENT: cough, dyspnea. ABSENT: hemoptysis Gastrointestinal: ABSENT: abdominal pain, constipation, diarrhea, hematemesis, hematochezia, nausea, vomiting Genitourinary: ABSENT: dysuria, hematuria Musculoskeletal: ABSENT: joint swelling Integumentary: ABSENT: rash, wounds Neurological: ABSENT: abnormal gait, abnormal speech, confusion, dizziness, focal weakness, syncope Psychiatric: ABSENT: anxiety, depression, homidical ideation, suicidal ideation Endocrine: ABSENT: cold intolerance, heat intolerance, menstrual abnormalities, polydipsia, polyuria Hematologic/Lymphatic: ABSENT: easy bleeding, easy bruising, lymphadenopathy Physical Exam Vital Signs: Temp Pulse Resp BP Pulse Ox 97.5 F 67 16 153/63 H 98 10/18/18 03:26 10/18/18 08:33 10/18/18 08:33 10/18/18 03:26 10/18/18 08:33 Intake & Output 10/17/18 10/18/18 10/19/18 06:59 06:59 06:59 Intake Total 200 Balance 200 Weight 86 kg General appearance: PRESENT: no acute distress, well-developed, well-nourished Head exam: PRESENT: atraumatic, normocephalic Eye exam: PRESENT: conjunctiva pink, EOMI, PERRLA. ABSENT: scleral icterus Ear exam: PRESENT: normal external ear exam Mouth exam: PRESENT: moist, tongue midline Neck exam: PRESENT: full ROM. ABSENT: carotid bruit, JVD, lymphadenopathy, thyromegaly Respiratory exam: PRESENT: decreased breath sounds, wheezes Cardiovascular exam: PRESENT: RRR, +S1, +S2. ABSENT: diastolic murmur, rubs, systolic murmur Pulses: PRESENT: normal dorsalis pedis pul, +2 pedal pulses bilateral Vascular exam: PRESENT: normal capillary refill GI/Abdominal exam: PRESENT: normal bowel sounds, soft. ABSENT: distended, guarding, mass, organolmegaly, rebound, tenderness Rectal exam: PRESENT: deferred Musculoskeletal exam: PRESENT: ambulatory Neurological exam: PRESENT: alert, awake, oriented to person, oriented to place, oriented to time, oriented to situation, CN II-XII grossly intact. ABSENT: motor sensory deficit Psychiatric exam: PRESENT: appropriate affect, normal mood. ABSENT: homicidal ideation, suicidal ideation Skin exam: PRESENT: dry, intact, warm. ABSENT: cyanosis, rash Results Laboratory Results: 10/17/18 23:15 10/17/18 23:15 10/17/18 10/17/18 10/17/18 23:15 23:15 23:15 WBC 10.1 RBC 4.69 Hgb 13.3 Hct 41.1 MCV 88 MCH 28.3 MCHC 32.3 RDW 14.4 H Plt Count 181 Seg Neutrophils % 59.9 Lymphocytes % 28.1 Monocytes % 7.9 Eosinophils % 3.7 Basophils % 0.4 Absolute Neutrophils 6.1 Absolute Lymphocytes 2.9 Absolute Monocytes 0.8 Absolute Eosinophils 0.4 Absolute Basophils 0.0 VBG pH 7.33 VBG pCO2 62.1 VBG HCO3 32.1 H VBG Base Excess 4.3 Sodium 137.5 Potassium 3.7 Chloride 97 L Carbon Dioxide 31 H Anion Gap 10 BUN 20 Creatinine 0.96 Est GFR ( Amer) > 60 Est GFR (Non-Af Amer) 58 L Glucose 132 H Calcium 9.3 10/17/18 10/18/18 10/18/18 23:15 05:23 05:23 Creatine Kinase 172 H Troponin I < 0.012 0.019 Impressions: Chest X-Ray 10/17/18 23:06 IMPRESSION: No pneumonia. Assessment & Plan - Diagnosis (1) COPD with acute exacerbation Is this a current diagnosis for this admission?: Yes Plan: Start the patient on the IVSteroid and nebulizer treatments (2) Chronic atrial fibrillation Is this a current diagnosis for this admission?: Yes Plan: Continues to Eliquis (3) Hypertension Qualifiers: Hypertension type: essential hypertension Qualified Code(s): I10 - Essential (primary) hypertension Is this a current diagnosis for this admission?: Yes (4) Smoker Is this a current diagnosis for this admission?: Yes Plan: Discussed with the patient about smoking counseling (5) Hypoxia Is this a current diagnosis for this admission?: Yes Plan: Due to the above conditions currently getting better (6) Respiratory distress Is this a current diagnosis for this admission?: Yes Plan: We will repeat the ABG currently all getting better consult the pulmonary - Time Time Spent: 30 to 50 Minutes Medications reviewed and adjusted accordingly: Yes Anticipated discharge: Home Within: Other - Inpatient Certification Based on my medical assessment, after consideration of the patient's jaci rbidities, presenting symptoms, or acuity I expect that the services needed warrant INPATIENT care.: Yes I certify that my determination is in accordance with my understanding of Medicare's requirements for reasonable and necessary INPATIENT services [42 CFR 412.3e].: Yes Medical Necessity: Significant Comorbidiites Make Outpatient Treatment Too Risky, Need for Nebulizer Therapy and Monitoring of Response, Need for IV Antibiotics Post Hospital Care: D/C Revit Drafter Documentation - Plan Summary Plan Summary: See MD orders
[2018-10-18] MEDS: CEFEPIME 1 GM/D5W RTU 1 GM/50 ML RTUPB IV SCH ×2 (11:00→21:14)
[2018-10-18] MEDS: HYDRALAZINE HCL 25 MG TABLET PO SCH (21:08)
[2018-10-18] MEDS: APIXABAN 5 MG TABLET PO SCH (21:08)
[2018-10-18] MEDS: CARVEDILOL 6.25 MG TABLET PO SCH (21:08)
[2018-10-18] MEDS: GABAPENTIN 400 MG CAPSULE PO SCH (21:08)
[2018-10-18] MEDS: AMLODIPINE BESYLATE 10 MG TABLET PO SCH (21:10)
[2018-10-18] MEDS: VALSARTAN 160 MG TABLET PO SCH (21:13)
[2018-10-18] MEDS: HYDROCHLOROTHIAZIDE 25 MG TABLET PO SCH (21:14)
[2018-10-18] MEDS ORDERED: LISINOPRIL 10 MG TABLET PO SCH (22:00)
[2018-10-19] MEDS: LEVALBUTEROL HCL NEB 1.25 MG/3 ML AMPUL NEB SCH ×6 (00:22→20:35)
[2018-10-19 05:37] LABS: ABSOLUTE LYMPHOCYTES (AUTO) 1.3 10^3/uL (0.5-4.7); ABSOLUTE MONOCYTES (AUTO) 0.5 10^3/uL (0.1-1.4); ABSOLUTE NEUT (AUTO) 9.1 10^3/uL (1.7-8.2); HEMATOCRIT 39.9 % (36.0-47.0); HEMOGLOBIN 13.4 g/dL (12.0-15.5); LYMPHOCYTES % (AUTO) 11.6 % (13-45); MEAN CORPUSCULAR HEMOGLOBIN 28.8 pg (27.0-33.4); MEAN CORPUSCULAR HGB CONC 33.5 g/dL (32.0-36.0); MEAN CORPUSCULAR VOLUME 86 fl (80-97); MONOCYTES % (AUTO) 4.3 % (3-13); PLATELET COUNT 191 10^3/uL (150-450); RED BLOOD COUNT 4.65 10^6/uL (3.72-5.28); RED CELL DISTRIBUTION WIDTH 14.4 % (11.5-14.0); SEGMENTED NEUTROPHILS % (AUTO) 84.1 % (42-78); TOTAL CELLS COUNTED % (AUTO) 100 %; WHITE BLOOD COUNT 10.9 10^3/uL (4.0-10.5)
[2018-10-19] MEDS: HYDRALAZINE HCL 25 MG TABLET PO SCH (05:39)
[2018-10-19] MEDS: GABAPENTIN 400 MG CAPSULE PO SCH ×3 (05:39→22:14)
[2018-10-19] MEDS: METHYLPREDNISOLONE INJ 40 MG/1 ML SDV IV SCH ×3 (05:40→22:14)
[2018-10-19 06:00] LABS: ALBUMIN 3.9 g/dL (3.5-5.0); ALKALINE PHOSPHATASE 108 U/L (38-126); ANION GAP 10 (5-19); ASPARTATE AMINO TRANSFERASE 20 U/L (14-36); BILIRUBIN,DIRECT 0.3 mg/dL (0.0-0.4); BILIRUBIN,TOTAL 0.7 mg/dL (0.2-1.3); BLOOD UREA NITROGEN 15 mg/dL (7-20); CALCIUM 9.5 mg/dL (8.4-10.2); CARBON DIOXIDE 30 mmol/L (22-30); CHLORIDE 100 mmol/L (98-107); GLUCOSE 130 mg/dL (75-110); POTASSIUM 3.5 mmol/L (3.6-5.0); TOTAL PROTEIN 7.2 g/dL (6.3-8.2)
[2018-10-19] MEDS: CEFEPIME 1 GM/D5W RTU 1 GM/50 ML RTUPB IV SCH ×2 (09:29→22:14)
[2018-10-19] MEDS: VALSARTAN 160 MG TABLET PO SCH (09:30)
[2018-10-19] MEDS: AMLODIPINE BESYLATE 10 MG TABLET PO SCH (09:31)
[2018-10-19] MEDS: APIXABAN 5 MG TABLET PO SCH ×2 (09:31→22:14)
[2018-10-19] MEDS: HYDROCHLOROTHIAZIDE 25 MG TABLET PO SCH (09:31)
[2018-10-19] MEDS: CARVEDILOL 6.25 MG TABLET PO SCH ×2 (09:32→22:14)
[2018-10-19 09:57] LABS: ARTERIAL BLOOD BASE EXCESS 4.8 mmol/L; ARTERIAL BLOOD H2CO3 1.12 mmol/L (1.05-1.35); ARTERIAL BLOOD HCO3 28.1 mmol/L (20-24); ARTERIAL BLOOD O2 SATURATION 91.4 % (94-98); ARTERIAL BLOOD PCO2 37.2 mmHg (35-45); ARTERIAL BLOOD PO2 55.6 mmHg (80-100); ARTERIAL BLOOD TOTAL CO2 29.2 mmol/L (21-25)
[2018-10-19 09:58] LABS: ARTERIAL BLOOD FIO2 21%
[2018-10-19] MEDS ORDERED: (PENDING PHARMACY ID) (Amlodipine Besylate/Valsartan [Amlodipine-Valsartan 10-320 Mg] 1 TA PO SCH (10:00)
[2018-10-19] MEDS ORDERED: (PENDING PHARMACY ID) (Lisinopril [Zestril] 40 MG) PO SCH (10:00)
--- NOTE | 2018-10-19 11:07 | PDOC PROGRESS REPORT ---
Subjective Progress Note for:: 10/19/18 Subjective:: Patient is currently doing well Denied any chest pain to than any shortness of the breath Discussed with the pulmonary continues to current medications Reason For Visit: COPD ACUTE Physical Exam Vital Signs: Temp Pulse Resp BP Pulse Ox 98.7 F 90 18 176/78 H 92 10/19/18 07:39 10/19/18 08:35 10/19/18 08:35 10/19/18 07:39 10/19/18 08:35 Intake & Output 10/18/18 10/19/18 10/20/18 06:59 06:59 06:59 Intake Total 200 940 33 Balance 200 940 33 Weight 86 kg 88.2 kg General appearance: PRESENT: no acute distress, well-developed, well-nourished Head exam: PRESENT: atraumatic, normocephalic Eye exam: PRESENT: conjunctiva pink, EOMI, PERRLA. ABSENT: scleral icterus Ear exam: PRESENT: normal external ear exam Mouth exam: PRESENT: moist, tongue midline Neck exam: PRESENT: full ROM. ABSENT: carotid bruit, JVD, lymphadenopathy, thyromegaly Respiratory exam: PRESENT: wheezes Cardiovascular exam: PRESENT: RRR. ABSENT: diastolic murmur, rubs, systolic murmur Pulses: PRESENT: normal dorsalis pedis pul, +2 pedal pulses bilateral Vascular exam: PRESENT: normal capillary refill GI/Abdominal exam: PRESENT: normal bowel sounds, soft. ABSENT: distended, guarding, mass, organolmegaly, rebound, tenderness Rectal exam: PRESENT: deferred Musculoskeletal exam: PRESENT: ambulatory Neurological exam: PRESENT: alert, awake, oriented to person, oriented to place, oriented to time, oriented to situation, CN II-XII grossly intact. ABSENT: motor sensory deficit Psychiatric exam: PRESENT: appropriate affect, normal mood. ABSENT: homicidal ideation, suicidal ideation Skin exam: PRESENT: dry, intact, warm. ABSENT: cyanosis, rash Results Laboratory Results: 10/19/18 04:53 10/19/18 04:53 10/19/18 10/19/18 10/19/18 04:53 04:53 09:38 WBC 10.9 H RBC 4.65 Hgb 13.4 Hct 39.9 MCV 86 MCH 28.8 MCHC 33.5 RDW 14.4 H Plt Count 191 Seg Neutrophils % 84.1 H Lymphocytes % 11.6 L Monocytes % 4.3 Eosinophils % 0.0 Basophils % 0.0 Absolute Neutrophils 9.1 H Absolute Lymphocytes 1.3 Absolute Monocytes 0.5 Absolute Eosinophils 0.0 Absolute Basophils 0.0 Carbonic Acid 1.12 HCO3/H2CO3 Ratio 25:1 ABG pH 7.50 H ABG pCO2 37.2 ABG pO2 55.6 L ABG HCO3 28.1 H ABG O2 Saturation 91.4 L ABG Base Excess 4.8 FiO2 21% Sodium 139.7 Potassium 3.5 L Chloride 100 Carbon Dioxide 30 Anion Gap 10 BUN 15 Creatinine 0.64 Est GFR ( Amer) > 60 Est GFR (Non-Af Amer) > 60 Glucose 130 H Calcium 9.5 Total Bilirubin 0.7 AST 20 Alkaline Phosphatase 108 Total Protein 7.2 Albumin 3.9 10/17/18 10/18/18 10/18/18 23:15 05:23 05:23 Creatine Kinase 172 H Troponin I < 0.012 0.019 10/18/18 10/18/18 10/18/18 11:33 11:33 17:15 Creatine Kinase 172 H 187 H Troponin I 0.015 10/18/18 17:15 Creatine Kinase Troponin I < 0.012 Impressions: Chest X-Ray 10/17/18 23:06 IMPRESSION: No pneumonia. Assessment & Plan - Diagnosis (1) COPD with acute exacerbation Is this a current diagnosis for this admission?: Yes Plan: Start the patient on the IVSteroid and nebulizer treatments (2) Chronic atrial fibrillation Is this a current diagnosis for this admission?: Yes Plan: Continues to Radha (3) Hypertension Qualifiers: Hypertension type: essential hypertension Qualified Code(s): I10 - Essential (primary) hypertension Is this a current diagnosis for this admission?: Yes (4) Smoker Is this a current diagnosis for this admission?: Yes Plan: Discussed with the patient about smoking counseling (5) Hypoxia Is this a current diagnosis for this admission?: Yes Plan: Due to the above conditions currently getting better (6) Respiratory distress Is this a current diagnosis for this admission?: Yes Plan: Continues to current medications follow with the pulmonary - Time Time Spent with patient: 15-24 minutes Medications reviewed and adjusted accordingly: Yes Anticipated discharge: Home Within: Other - Plan Summary Plan Summary: Continues IV steroid continue some nebulizer
[2018-10-19] MEDS: HYDRALAZINE HCL 50 MG TABLET PO SCH ×2 (14:31→22:14)
[2018-10-19] MEDS ORDERED: HYDRALAZINE HCL INJ/PF 20 MG/1 ML SDV IV PRN (19:07)
[2018-10-20] MEDS: LEVALBUTEROL HCL NEB 1.25 MG/3 ML AMPUL NEB SCH ×6 (00:35→20:31)
[2018-10-20] MEDS: METHYLPREDNISOLONE INJ 40 MG/1 ML SDV IV SCH (05:10)
[2018-10-20] MEDS: HYDRALAZINE HCL 50 MG TABLET PO SCH ×3 (05:10→21:41)
[2018-10-20] MEDS: GABAPENTIN 400 MG CAPSULE PO SCH ×3 (05:10→21:41)
[2018-10-20 06:37] LABS: ABSOLUTE LYMPHOCYTES (AUTO) 1.3 10^3/uL (0.5-4.7); ABSOLUTE MONOCYTES (AUTO) 0.4 10^3/uL (0.1-1.4); ABSOLUTE NEUT (AUTO) 10.1 10^3/uL (1.7-8.2); BASOPHILS % (AUTO) 0.1 % (0-2); HEMOGLOBIN 13.5 g/dL (12.0-15.5); LYMPHOCYTES % (AUTO) 10.7 % (13-45); MEAN CORPUSCULAR HEMOGLOBIN 28.1 pg (27.0-33.4); MEAN CORPUSCULAR HGB CONC 32.9 g/dL (32.0-36.0); MEAN CORPUSCULAR VOLUME 86 fl (80-97); MONOCYTES % (AUTO) 3.2 % (3-13); PLATELET COUNT 201 10^3/uL (150-450); RED BLOOD COUNT 4.79 10^6/uL (3.72-5.28); RED CELL DISTRIBUTION WIDTH 14.6 % (11.5-14.0); TOTAL CELLS COUNTED % (AUTO) 100 %; WHITE BLOOD COUNT 11.7 10^3/uL (4.0-10.5)
[2018-10-20 06:59] LABS: ANION GAP 8 (5-19); BLOOD UREA NITROGEN 23 mg/dL (7-20); CALCIUM 8.3 mg/dL (8.4-10.2); CARBON DIOXIDE 31 mmol/L (22-30); CHLORIDE 101 mmol/L (98-107); GLUCOSE 146 mg/dL (75-110); POTASSIUM 3.1 mmol/L (3.6-5.0)
[2018-10-20] MEDS ORDERED: POTASSIUM CHLORIDE 20 MEQ PACKET PO ONE ×2 (08:40→12:30)
[2018-10-20] MEDS: VALSARTAN 160 MG TABLET PO SCH (09:31)
[2018-10-20] MEDS: APIXABAN 5 MG TABLET PO SCH ×2 (09:32→21:41)
[2018-10-20] MEDS: CARVEDILOL 6.25 MG TABLET PO SCH ×2 (09:32→21:41)
[2018-10-20] MEDS: HYDROCHLOROTHIAZIDE 25 MG TABLET PO SCH (09:32)
[2018-10-20] MEDS: AMLODIPINE BESYLATE 10 MG TABLET PO SCH (09:32)
[2018-10-20] MEDS: CEFEPIME 1 GM/D5W RTU 1 GM/50 ML RTUPB IV SCH ×2 (09:34→21:41)
--- NOTE | 2018-10-20 11:35 | PDOC PROGRESS REPORT ---
Subjective Progress Note for:: 10/20/18 Subjective:: Patient is currently doing well Patient is wants to go home Denied any chest pain to than any shortness of breath Reason For Visit: COPD ACUTE Physical Exam Vital Signs: Temp Pulse Resp BP Pulse Ox 98.5 F 85 16 143/85 H 98 10/20/18 08:19 10/20/18 08:45 10/20/18 08:45 10/20/18 08:19 10/20/18 08:45 Intake & Output 10/19/18 10/20/18 10/21/18 06:59 06:59 06:59 Intake Total 940 1255 50 Balance 940 1255 50 Weight 88.2 kg 87.7 kg General appearance: PRESENT: no acute distress, well-developed, well-nourished Head exam: PRESENT: atraumatic, normocephalic Eye exam: PRESENT: conjunctiva pink, EOMI, PERRLA. ABSENT: scleral icterus Ear exam: PRESENT: normal external ear exam Mouth exam: PRESENT: moist, tongue midline Neck exam: PRESENT: full ROM. ABSENT: carotid bruit, JVD, lymphadenopathy, thyromegaly Respiratory exam: PRESENT: clear to auscultation yessica Cardiovascular exam: PRESENT: RRR. ABSENT: diastolic murmur, rubs, systolic murmur Pulses: PRESENT: normal dorsalis pedis pul, +2 pedal pulses bilateral Vascular exam: PRESENT: normal capillary refill GI/Abdominal exam: PRESENT: normal bowel sounds, soft. ABSENT: distended, guarding, mass, organolmegaly, rebound, tenderness Rectal exam: PRESENT: deferred Musculoskeletal exam: PRESENT: ambulatory Neurological exam: PRESENT: alert, awake, oriented to person, oriented to place, oriented to time, oriented to situation, CN II-XII grossly intact. ABSENT: motor sensory deficit Psychiatric exam: PRESENT: appropriate affect, normal mood. ABSENT: homicidal ideation, suicidal ideation Skin exam: PRESENT: dry, intact, warm. ABSENT: cyanosis, rash Results Laboratory Results: 10/20/18 04:40 10/20/18 04:40 10/20/18 10/20/18 04:40 04:40 WBC 11.7 H RBC 4.79 Hgb 13.5 Hct 41.0 MCV 86 MCH 28.1 MCHC 32.9 RDW 14.6 H Plt Count 201 Seg Neutrophils % 86.0 H Lymphocytes % 10.7 L Monocytes % 3.2 Eosinophils % 0.0 Basophils % 0.1 Absolute Neutrophils 10.1 H Absolute Lymphocytes 1.3 Absolute Monocytes 0.4 Absolute Eosinophils 0.0 Absolute Basophils 0.0 Sodium 140.4 Potassium 3.1 L Chloride 101 Carbon Dioxide 31 H Anion Gap 8 BUN 23 H Creatinine 0.71 Est GFR ( Amer) > 60 Est GFR (Non-Af Amer) > 60 Glucose 146 H Calcium 8.3 L 10/17/18 10/18/18 10/18/18 23:15 05:23 05:23 Creatine Kinase 172 H Troponin I < 0.012 0.019 10/18/18 10/18/18 10/18/18 11:33 11:33 17:15 Creatine Kinase 172 H 187 H Troponin I 0.015 10/18/18 17:15 Creatine Kinase Troponin I < 0.012 Impressions: Chest X-Ray 10/17/18 23:06 IMPRESSION: No pneumonia. Assessment & Plan - Diagnosis (1) COPD with acute exacerbation Is this a current diagnosis for this admission?: Yes Plan: d/c IV steroids start on a p.o. steroids (2) Chronic atrial fibrillation Is this a current diagnosis for this admission?: Yes Plan: Continues to Eliquis (3) Hypertension Qualifiers: Hypertension type: essential hypertension Qualified Code(s): I10 - Essential (primary) hypertension Is this a current diagnosis for this admission?: Yes (4) Smoker Is this a current diagnosis for this admission?: Yes Plan: Discussed with the patient about smoking counseling (5) Hypoxia Is this a current diagnosis for this admission?: Yes Plan: Due to the above conditions currently getting better (6) Respiratory distress Is this a current diagnosis for this admission?: Yes - Time Time Spent with patient: 15-24 minutes Medications reviewed and adjusted accordingly: Yes Anticipated discharge: Home Within: within 24 hours - Plan Summary Plan Summary: Start on a p.o. steroids
[2018-10-20] MEDS ORDERED: METHYLPREDNISOLONE INJ 40 MG/1 ML SDV IV SCH (14:00)
[2018-10-20] MEDS: PREDNISONE 20 MG TABLET PO SCH (17:12)
[2018-10-20] MEDS: TRAMADOL HCL 50 MG TABLET PO PRN (21:44)
[2018-10-21] MEDS: LEVALBUTEROL HCL NEB 1.25 MG/3 ML AMPUL NEB SCH ×5 (00:38→18:45)
[2018-10-21] MEDS: TRAMADOL HCL 50 MG TABLET PO PRN ×2 (04:01→10:30)
[2018-10-21 04:40] LABS: ABSOLUTE LYMPHOCYTES (AUTO) 1.8 10^3/uL (0.5-4.7); ABSOLUTE MONOCYTES (AUTO) 0.8 10^3/uL (0.1-1.4); ABSOLUTE NEUT (AUTO) 10.7 10^3/uL (1.7-8.2); BASOPHILS % (AUTO) 0.1 % (0-2); HEMATOCRIT 42.4 % (36.0-47.0); HEMOGLOBIN 13.7 g/dL (12.0-15.5); LYMPHOCYTES % (AUTO) 13.7 % (13-45); MEAN CORPUSCULAR HGB CONC 32.4 g/dL (32.0-36.0); MEAN CORPUSCULAR VOLUME 87 fl (80-97); MONOCYTES % (AUTO) 5.8 % (3-13); PLATELET COUNT 215 10^3/uL (150-450); RED CELL DISTRIBUTION WIDTH 14.5 % (11.5-14.0); SEGMENTED NEUTROPHILS % (AUTO) 80.4 % (42-78); TOTAL CELLS COUNTED % (AUTO) 100 %; WHITE BLOOD COUNT 13.3 10^3/uL (4.0-10.5)
[2018-10-21 05:09] LABS: ANION GAP 8 (5-19); BLOOD UREA NITROGEN 25 mg/dL (7-20); CALCIUM 8.8 mg/dL (8.4-10.2); CARBON DIOXIDE 32 mmol/L (22-30); CHLORIDE 101 mmol/L (98-107); GLUCOSE 203 mg/dL (75-110); POTASSIUM 3.1 mmol/L (3.6-5.0)
[2018-10-21] MEDS: GABAPENTIN 400 MG CAPSULE PO SCH ×2 (06:19→13:16)
[2018-10-21] MEDS: HYDRALAZINE HCL 50 MG TABLET PO SCH ×2 (06:19→13:16)
[2018-10-21] MEDS: PREDNISONE 20 MG TABLET PO SCH ×2 (09:12→17:16)
[2018-10-21] MEDS: APIXABAN 5 MG TABLET PO SCH (09:13)
[2018-10-21] MEDS: HYDROCHLOROTHIAZIDE 25 MG TABLET PO SCH (09:13)
[2018-10-21] MEDS: AMLODIPINE BESYLATE 10 MG TABLET PO SCH (09:13)
[2018-10-21] MEDS: CARVEDILOL 6.25 MG TABLET PO SCH (09:13)
[2018-10-21] MEDS: VALSARTAN 160 MG TABLET PO SCH (09:14)
[2018-10-21] MEDS: CEFEPIME 1 GM/D5W RTU 1 GM/50 ML RTUPB IV SCH (09:14)
[2018-10-21 13:43] LABS: ABSOLUTE LYMPHOCYTES (AUTO) 1.5 10^3/uL (0.5-4.7); ABSOLUTE MONOCYTES (AUTO) 0.6 10^3/uL (0.1-1.4); ABSOLUTE NEUT (AUTO) 8.4 10^3/uL (1.7-8.2); BASOPHILS % (AUTO) 0.1 % (0-2); EOSINOPHILS % (AUTO) 0.2 % (0-6); HEMATOCRIT 41.3 % (36.0-47.0); HEMOGLOBIN 13.6 g/dL (12.0-15.5); MEAN CORPUSCULAR HEMOGLOBIN 28.2 pg (27.0-33.4); MEAN CORPUSCULAR HGB CONC 32.8 g/dL (32.0-36.0); MEAN CORPUSCULAR VOLUME 86 fl (80-97); MONOCYTES % (AUTO) 5.9 % (3-13); PLATELET COUNT 192 10^3/uL (150-450); RED CELL DISTRIBUTION WIDTH 14.7 % (11.5-14.0); SEGMENTED NEUTROPHILS % (AUTO) 79.8 % (42-78); TOTAL CELLS COUNTED % (AUTO) 100 %; WHITE BLOOD COUNT 10.5 10^3/uL (4.0-10.5)
[2018-10-21 13:55] LABS: APPEARANCE,URINE CLEAR; BILIRUBIN,URINE NEGATIVE (NEGATIVE); COLOR,URINE YELLOW; GLUCOSE, URINE NEGATIVE (NEGATIVE); KETONES,URINE NEGATIVE (NEGATIVE); LEUKOCYTE ESTERASE,URINE NEGATIVE (NEGATIVE); NITRITE,URINE NEGATIVE (NEGATIVE); PROTEIN,URINE NEGATIVE (NEGATIVE); URINE SPECIFIC GRAVITY 1.027; UROBILINOGEN,URINE NEGATIVE mg/dL (<2.0)
[2018-10-21 14:00] LABS: ALBUMIN 3.3 g/dL (3.5-5.0); ALKALINE PHOSPHATASE 82 U/L (38-126); ANION GAP 7 (5-19); ASPARTATE AMINO TRANSFERASE 33 U/L (14-36); BILIRUBIN,DIRECT 0.2 mg/dL (0.0-0.4); BILIRUBIN,TOTAL 0.5 mg/dL (0.2-1.3); BLOOD UREA NITROGEN 27 mg/dL (7-20); CALCIUM 8.4 mg/dL (8.4-10.2); CARBON DIOXIDE 31 mmol/L (22-30); CHLORIDE 99 mmol/L (98-107); GLUCOSE 199 mg/dL (75-110); POTASSIUM 3.7 mmol/L (3.6-5.0); TOTAL PROTEIN 6.3 g/dL (6.3-8.2)
--- NOTE | 2018-10-21 15:21 | RADIOLOGY REPORT (SQ) ---
EXAM DESCRIPTION: CHEST 2 VIEWS COMPLETED DATE/TIME: 10/21/2018 3:05 pm REASON FOR STUDY: abdominal pain COMPARISON: 10/17/2018 CT 08/01/2018 EXAM PARAMETERS: NUMBER OF VIEWS: two views TECHNIQUE: Digital Frontal and Lateral radiographic views of the chest acquired. RADIATION DOSE: NA LIMITATIONS: none FINDINGS: LUNGS AND PLEURA: No opacities, masses or pneumothorax. No pleural effusion. 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 This appears more prominent than on the study from 10/17/2018. HEART AND VASCULAR STRUCTURES: Cardiomegaly. No pulmonary edema. BONES: No acute findings. HARDWARE: None in the chest. OTHER: No other significant finding. IMPRESSION: Cardiomegaly without pulmonary edema. Pulmonary artery aneurysm. No acute pulmonary fi ndings. TECHNICAL DOCUMENTATION: JOB ID: [id number] [employer]- All Rights Reserved Reading location - IP/workstation name: [email or web address]
[2018-10-21 16:26] VITALS: BP 130/71
--- NOTE | 2018-10-22 14:29 | PDOC DISCHARGE SUMMARY ---
General - Admit/Disc Date/PCP Admission Date/Primary Care Provider: 10/18/18 00:37 BHAKTI JOSE Discharge Date: 10/21/18 - Additional Information Resuscitation Status: Full Code Discharge Diet: Cardiac Discharge Activity: Activity As Tolerated Home Medications: Amlodipine Besylate/Valsartan [Amlodipine-Valsartan 10-320 mg] 1 tab PO DAILY 10/18/18 Apixaban [Eliquis 5 mg Tablet] 5 mg PO BID 10/18/18 Carvedilol [Coreg 6.25 mg Tablet] 6.25 mg PO Q12 10/18/18 Gabapentin [Neurontin 400 mg Capsule] 400 mg PO TID 10/18/18 Hydralazine HCl [Apresoline 25 mg Tablet] 25 mg PO Q8 10/18/18 Hydrochlorothiazide [Hydrodiuril 25 mg Tablet] 25 mg PO DAILY 10/18/18 Lisinopril [Zestril] 40 mg PO DAILY 10/18/18 Tramadol HCl [Ultram 50 mg Tablet] 50 mg PO Q6HP PRN 10/18/18 History of Present Illness Patient complains of: Shortness of breath History of Present Illness: LAUREN DOMINGUEZ is a 68 year old female Is a 68-year-old female a patient of Dr. Guerrero with a history of the COPD and a chronic smoker history of the hypertension's hyperlipidemia and history of the chronic A. fib on a chronic Eliquis came to the emergency department with a complaining of shortness of the breath for the last couple of days and wheezing and not feeling well In the emergency department patient initially with a severe respiratory distress with the O2 sat is 90% on 2 L nasal cannula and dropped to up to the below 80%'s and required a BiPAP Patient's response very well with the BiPAP in the respiratory treatment and a Solu-Medrol and patient at this point ER physicians call for admissions I saw the patient on the floor patient is doing much better back to the nasal cannula denied any chest pain no short of breath still having some cough Still continues to smoke Patient with a history of the chronic A. fib and currently on Eliquis but denied any heart attacks denied any strokes Hospital Course Hospital Course: She was admitted as case of acute COPD exacerbation. She was managed with IV Solu Medrol and bronchodilators therapy. She was started on IV Cefepime due to concern for possible underlying infection. She was transition to oral steroid therapy. Her breathing has improved and she is agreeable to discharge today. She was counselled on smoking cessation as significant contributing factor to her illness and current hospitalization. She expressed wish to quit smoking and requested for assistance. She will be discharged home today. She will follow up in the office as instructed upon discharge. Physical Exam Vital Signs: Temp Pulse Resp BP Pulse Ox 97.9 F 53 L 13 130/71 H 100 10/21/18 15:12 10/21/18 15:12 10/21/18 15:12 10/21/18 15:12 10/21/18 15:12 Intake & Output 10/20/18 10/21/18 10/22/18 06:59 06:59 06:59 Intake Total 1255 780 605 Balance 1255 780 605 Weight 87.7 kg 89.4 kg General appearance: PRESENT: obese Head exam: PRESENT: atraumatic, normocephalic Eye exam: PRESENT: conjunctiva pink. ABSENT: scleral icterus Ear exam: PRESENT: normal external ear exam Mouth exam: PRESENT: moist Teeth exam: PRESENT: poor dentation Respiratory exam: PRESENT: clear to auscultation yessica Cardiovascular exam: PRESENT: irregular rhythm, +S1, +S2. ABSENT: diastolic murmur, systolic murmur Vascular exam: PRESENT: pallor GI/Abdominal exam: PRESENT: normal bowel sounds, soft. ABSENT: distended, guarding, mass, organolmegaly, rebound, tenderness Extremities exam: ABSENT: pedal edema Musculoskeletal exam: PRESENT: ambulatory Neurological exam: PRESENT: alert, awake, oriented to person, oriented to place, oriented to time, oriented to situation, CN II-XII grossly intact. ABSENT: motor sensory deficit Psychiatric exam: PRESENT: appropriate affect, normal mood. ABSENT: homicidal ideation, suicidal ideation Skin exam: PRESENT: dry, warm Results Laboratory Results: 10/21/18 13:11 10/21/18 13:11 10/21/18 10/21/18 10/21/18 04:08 04:08 13:11 WBC 13.3 H 10.5 RBC 4.90 4.80 Hgb 13.7 13.6 Hct 42.4 41.3 MCV 87 86 MCH 28.0 28.2 MCHC 32.4 32.8 RDW 14.5 H 14.7 H Plt Count 215 192 Seg Neutrophils % 80.4 H 79.8 H Lymphocytes % 13.7 14.0 Monocytes % 5.8 5.9 Eosinophils % 0.0 0.2 Basophils % 0.1 0.1 Absolute Neutrophils 10.7 H 8.4 H Absolute Lymphocytes 1.8 1.5 Absolute Monocytes 0.8 0.6 Absolute Eosinophils 0.0 0.0 Absolute Basophils 0.0 0.0 Sodium 140.5 Potassium 3.1 L Chloride 101 Carbon Dioxide 32 H Anion Gap 8 BUN 25 H Creatinine 0.87 Est GFR ( Amer) > 60 Est GFR (Non-Af Amer) > 60 Glucose 203 H Calcium 8.8 Total Bilirubin AST Alkaline Phosphatase Total Protein Albumin Urine Color Urine Appearance Urine pH Ur Specific [place] Urine Protein Urine Glucose (UA) Urine Ketones Urine Blood Urine Nitrite Ur Leukocyte Esterase Urine WBC (Auto) Urine RBC (Auto) 10/21/18 10/21/18 13:11 13:15 WBC RBC Hgb Hct MCV MCH MCHC RDW Plt Count Seg Neutrophils % Lymphocytes % Monocytes % Eosinophils % Basophils % Absolute Neutrophils Absolute Lymphocytes Absolute Monocytes Absolute Eosinophils Absolute Basophils Sodium 137.3 Potassium 3.7 Chloride 99 Carbon Dioxide 31 H Anion Gap 7 BUN 27 H Creatinine 0.99 Est GFR ( Amer) > 60 Est GFR (Non-Af Amer) 56 L Glucose 199 H Calcium 8.4 Total Bilirubin 0.5 AST 33 Alkaline Phosphatase 82 Total Protein 6.3 Albumin 3.3 L Urine Color YELLOW Urine Appearance CLEAR Urine pH 5.0 Ur Specific [place] 1.027 Urine Protein NEGATIVE Urine Glucose (UA) NEGATIVE Urine Ketones NEGATIVE Urine Blood NEGATIVE Urine Nitrite NEGATIVE Ur Leukocyte Esterase NEGATIVE Urine WBC (Auto) 2 Urine RBC (Auto) 2 10/19/18 09:00 Sputum Gram Stain - Final 10/19/18 09:00 Sputum Sputum Culture - Final 10/17/18 10/18/18 10/18/18 23:15 05:23 05:23 Creatine Kinase 172 H Troponin I < 0.012 0.019 10/18/18 10/18/18 10/18/18 11:33 11:33 17:15 Creatine Kinase 172 H 187 H Troponin I 0.015 10/18/18 17:15 Creatine Kinase Troponin I < 0.012 Impressions: Chest X-Ray 10/21/18 00:00 IMPRESSION: Cardiomegaly without pulmonary edema. Pulmonary artery aneurysm. No acute pulmonary findings. Qualifiers - * PATIENT BEING DISCHARGED WITH ANY OF THE FOLLOWING DIAGNOSIS: No Acute Heart Failure - Is this a Heart Failure Patient?: No Plan Discharge Plan: D/C home today. Follow up in the office as instructed upon discharge.
== END 2018-10-21 19:35 | disposition home or self-care (01) | DRG 192 ==
LOC: ER 22:48 → EH 10-18 00:37 → 3S 10-18 01:50
PROVIDERS: ADMIT Internal Medicine Geriatric Medicine; ATTEND Internal Medicine Geriatric Medicine
PROC: 5A09457 Assistance with Respiratory Ventilation, 24-96 Consecutive Hours, Continuous Positive Airway Pressure (ICD-10-PCS; principal; 2018-10-18)
DX: J44.1 Chronic obstructive pulmonary disease with (acute) exacerbation (principal); E78.5 Hyperlipidemia, unspecified; I48.2 Chronic atrial fibrillation; F17.210 Nicotine dependence, cigarettes, uncomplicated; I11.0 Hypertensive heart disease with heart failure; I50.9 Heart failure, unspecified; Z79.02 Long term (current) use of antithrombotics/antiplatelets; Z79.899 Other long term (current) drug therapy
CPT/HCPCS: 36415; 36600; 71045; 71046; 80048; 80053; 80076; 81001; 82550; 82803; 84484; 85025; 87040; 87070; 87205; 93005; 93010; 94640; 94660; 96365; 96366; 96375; 99285; J0692; J2920; J2930; J3475; J3490; J7512; J7620

== ENCOUNTER 2018-12-13 10:00 | Inpatient (IN) | payer MEDICARE ==
--- NOTE | 2018-12-13 10:31 | ER Document Report ---
ED General - General Chief Complaint: Breathing Difficulty Stated Complaint: DIFFICULTY BREATHING Time Seen by Provider: 12/13/18 10:31 Primary Care Provider: BHAKTI GARCIA MD [Primary Care Provider] - Follow up as needed TRAVEL OUTSIDE OF THE [place] IN LAST 30 DAYS: No - HPI Patient complains to provider of: SOB Notes: 68 y/o presenting to ED for evaluation of worsening sob over last 3-4 days she has a h/o wheezing and is on inhalers at home she has not had fever but has had productive cough no leg swelling but has a h/o pe is compliant w/ eliquis denies chest pain - Related Data Allergies/Adverse Reactions: No Known Allergies Allergy (Verified 12/13/18 10:05) Past Medical History - Social History Smoking Status: Current Every Day Smoker Chew tobacco use (# tins/day): No Frequency of alcohol use: None Drug Abuse: None Family History: Reviewed & Not Pertinent Patient has suicidal ideation: No Patient has homicidal ideation: No - Past Medical History Cardiac Medical History: Reports: Hx Atrial Fibrillation, Hx Congestive Heart Failure, Hx Hypercholesterolemia, Hx Hypertension Renal/ Medical History: Denies: Hx End Stage Renal Disease, Hx Peritoneal Dialysis GI Medical History: Denies: Hx Crohn's Disease, Hx Ulcerative Colitis Musculoskeletal Medical History: Denies Hx Gout Skin Medical History: Denies Hx Psoriasis Traumatic Medical History: Denies: Hx Gunshot Wound Infectious Medical History: Reports: Hx MRSA - Immunizations Immunizations up to date: Yes Hx Diphtheria, Pertussis, Tetanus Vaccination: Yes Review of Systems - Review of Systems Constitutional: No symptoms reported EENT: No symptoms reported Cardiovascular: No symptoms reported Respiratory: Cough, Short of breath, Sputum, Wheezing Gastrointestinal: No symptoms reported Genitourinary: No symptoms reported Female Genitourinary: No symptoms reported Musculoskeletal: No symptoms reported Skin: No symptoms reported Hematologic/Lymphatic: No symptoms reported Neurological/Psychological: No symptoms reported Physical Exam - Vital signs Vitals: Temp Pulse Resp BP Pulse Ox 98.2 F 93 22 H 214/94 H 91 L 12/13/18 10:08 12/13/18 10:08 12/13/18 10:08 12/13/18 10:08 12/13/18 10:08 Interpretation: Normal - General General appearance: Appears well, Alert - HEENT Head: Normocephalic, Atraumatic Eyes: Normal Pupils: PERRL - Respiratory Respiratory status: Tachypnea Chest status: Nontender Breath sounds: Decreased air movement, Productive cough, Wheezing Chest palpation: Normal - Cardiovascular Rhythm: Regular Heart sounds: Normal auscultation Murmur: No - Abdominal Inspection: Normal Distension: No distension Bowel sounds: Normal Tenderness: Nontender Organomegaly: No organomegaly - Back Back: Normal, Nontender - Extremities General upper extremity: Normal inspection, Nontender, Normal color, Normal ROM, Normal temperature General lower extremity: Normal inspection, Nontender, Normal color, Normal ROM, Normal temperature, Normal weight bearing. No: John's sign - Neurological Neuro grossly intact: Yes Cognition: Normal Orientation: AAOx4 [place] Coma Scale Eye Opening: Spontaneous [place] Coma Scale Verbal: Oriented [place] Coma Scale Motor: Obeys Commands [place] Coma Scale Total: 15 Speech: Normal Motor strength normal: LUE, RUE, LLE, RLE Sensory: Normal - Psychological Associated symptoms: Normal affect, Normal mood - Skin Skin Temperature: Warm Skin Moisture: Dry Skin Color: Normal Course - Re-evaluation Re-evalutation: 12/13/18 10:38 patient tachypneic w/ diminished BS and wheezing neb/steroids/abg ordered 12/13/18 12:15 will admit for copd exacerbation - Vital Signs Vital signs: Temp Pulse Resp BP Pulse Ox 98.2 F 93 27 H 189/81 H 94 12/13/18 10:08 12/13/18 10:08 12/13/18 10:24 12/13/18 11:32 12/13/18 12:00 - Laboratory Result Diagrams: 12/13/18 11:22 12/13/18 11:22 Laboratory results interpreted by me: 12/13/18 12/13/18 12/13/18 11:22 11:22 11:22 RDW 14.3 H Carbonic Acid 1.44 H ABG pCO2 47.9 H ABG pO2 71.0 L ABG HCO3 28.0 H ABG Total CO2 29.4 H ABG O2 Saturation 93.9 L Carbon Dioxide 31 H Creatine Kinase 475 H - EKG Interpretation by Me Additional EKG results interpreted by me: 12/13/18 12:15 NSR at 85 Discharge - Discharge Clinical Impression: Elevated blood pressure reading COPD (chronic obstructive pulmonary disease) Qualifiers: COPD type: unspecified COPD Qualified Code(s): J44.9 - Chronic obstructive pulmonary disease, unspecified Condition: Stable Disposition: ADMITTED INPATIENT Admitting Provider: Adela Unit Admitted: Medical Floor Referrals: BHAKTI GARCIA MD [Primary Care Provider] - Follow up as needed
[2018-12-13] MEDS ORDERED: IPRATROPIUM/ALBUTEROL 0.5-2.5 MG/3 ML AMPUL NEB ONE (10:36)
[2018-12-13] MEDS ORDERED: METHYLPREDNISOLONE INJ 125 MG/2 ML SDV IV ONE (10:36)
--- NOTE | 2018-12-13 10:58 | RADIOLOGY REPORT (SQ) ---
EXAM DESCRIPTION: CHEST SINGLE VIEW COMPLETED DATE/TIME: 12/13/2018 10:31 am REASON FOR STUDY: bed t1 db COMPARISON: None. EXAM PARAMETERS: NUMBER OF VIEWS: One view. TECHNIQUE: Single frontal radiographic view of the chest acquired. RADIATION DOSE: NA LIMITATIONS: None. FINDINGS: LUNGS AND PLEURA: No opacities, masses or pneumothorax. No pleural effusion. MEDIASTINUM AND HILAR STRUCTURES: No masses. Contour normal. HEART AND VASCULAR STRUCTURES: Cardiomegaly. Pulmonary artery aneurysm. BONES: No acute findings. HARDWARE: None in the chest. OTHER: No other significant finding. IMPRESSION: Cardiomegaly without pulmonary edema. Pulmonary artery aneurysm. Stable. TECHNICAL DOCUMENTATION: JOB ID: [id number] [employer]- All Rights Reserved Reading location - IP/workstation name: [email or web address]
[2018-12-13] MEDS ORDERED: ALBUTEROL SULFATE 0.083% NEB 2.5 MG/3 ML AMPUL NEB ONE (11:32)
[2018-12-13 11:46] LABS: ARTERIAL BLOOD BASE EXCESS 2.2 mmol/L; ARTERIAL BLOOD H2CO3 1.44 mmol/L (1.05-1.35); ARTERIAL BLOOD O2 SATURATION 93.9 % (94-98); ARTERIAL BLOOD PCO2 47.9 mmHg (35-45); ARTERIAL BLOOD PH 7.38 (7.35-7.45); ARTERIAL BLOOD TOTAL CO2 29.4 mmol/L (21-25)
[2018-12-13 11:48] LABS: ARTERIAL BLOOD FIO2 2L
[2018-12-13 11:51] LABS: ABSOLUTE EOSINOPHILS # (AUTO) 0.2 10^3/uL (0.0-0.6); ABSOLUTE LYMPHOCYTES (AUTO) 1.8 10^3/uL (0.5-4.7); ABSOLUTE MONOCYTES (AUTO) 0.5 10^3/uL (0.1-1.4); ABSOLUTE NEUT (AUTO) 3.9 10^3/uL (1.7-8.2); BASOPHILS % (AUTO) 0.4 % (0-2); EOSINOPHILS % (AUTO) 2.9 % (0-6); HEMATOCRIT 38.7 % (36.0-47.0); HEMOGLOBIN 12.7 g/dL (12.0-15.5); LYMPHOCYTES % (AUTO) 27.8 % (13-45); MEAN CORPUSCULAR HEMOGLOBIN 28.3 pg (27.0-33.4); MEAN CORPUSCULAR HGB CONC 32.8 g/dL (32.0-36.0); MEAN CORPUSCULAR VOLUME 86 fl (80-97); MONOCYTES % (AUTO) 7.6 % (3-13); PLATELET COUNT 188 10^3/uL (150-450); RED BLOOD COUNT 4.49 10^6/uL (3.72-5.28); RED CELL DISTRIBUTION WIDTH 14.3 % (11.5-14.0); SEGMENTED NEUTROPHILS % (AUTO) 61.3 % (42-78); TOTAL CELLS COUNTED % (AUTO) 100 %; WHITE BLOOD COUNT 6.4 10^3/uL (4.0-10.5)
[2018-12-13 12:00] LABS: ALBUMIN 3.9 g/dL (3.5-5.0); ALKALINE PHOSPHATASE 93 U/L (38-126); ANION GAP 7 (5-19); ASPARTATE AMINO TRANSFERASE 32 U/L (14-36); BILIRUBIN,DIRECT 0.2 mg/dL (0.0-0.4); BILIRUBIN,TOTAL 0.5 mg/dL (0.2-1.3); BLOOD UREA NITROGEN 14 mg/dL (7-20); CALCIUM 9.3 mg/dL (8.4-10.2); CARBON DIOXIDE 31 mmol/L (22-30); CHLORIDE 103 mmol/L (98-107); CREATINE KINASE 475 U/L (30-135); GLUCOSE 107 mg/dL (75-110); POTASSIUM 4.1 mmol/L (3.6-5.0)
[2018-12-13] MEDS ORDERED: LORAZEPAM INJ 2 MG/1 ML VIAL IV ONE (12:03)
[2018-12-13 12:13] LABS: CREATINE KINASE MB 2.71 ng/mL (<4.55); NT PRO BNP 442 pg/mL (5-900)
[2018-12-13 12:14] LABS: TROPONIN I < 0.012 ng/mL
--- NOTE | 2018-12-13 13:38 | EKG REPORT ---
SEVERITY:- ABNORMAL ECG - SINUS RHYTHM PROBABLE LEFT VENTRICULAR HYPERTROPHY BORDERLINE PROLONGED QT INTERVAL : Confirmed by: Alla Guzamn MD 13-Dec-2018 13:37:24
[2018-12-13 16:21] LABS: APPEARANCE,URINE CLEAR; BILIRUBIN,URINE NEGATIVE (NEGATIVE); COLOR,URINE YELLOW; GLUCOSE, URINE NEGATIVE (NEGATIVE); KETONES,URINE NEGATIVE (NEGATIVE); LEUKOCYTE ESTERASE,URINE NEGATIVE (NEGATIVE); NITRITE,URINE NEGATIVE (NEGATIVE); PROTEIN,URINE NEGATIVE (NEGATIVE); URINE SPECIFIC GRAVITY 1.015
[2018-12-13] MEDS ORDERED: (PENDING PHARMACY ID) (Amlodipine Besylate/Valsartan [Amlodipine-Valsartan 10-320 Mg] 1 TA PO SCH (16:45)
--- NOTE | 2018-12-13 17:03 | PDOC H&P ---
History of Present Illness Admission Date/PCP: 12/13/18 12:28 BHAKTI GARCIA History of Present Illness: LAUREN DOMINGUEZ is a 68 year old female known to my practice who presented to the ED with complain of worsening difficulty with breathing. Patient presented with audible wheezing and observed respiratory difficulty. Despite adequate treatment with nebulizer and IV steroid she continue to demonstrate expiratory wheezes. She was advised hospitalization for further evaluation and management. Patient was informed of her son's from motor vehicle before onset of her symptoms. She denied any chest pain, fever or chills She reported productive coughing and continue to smoke cigarette. There is expressed emotional distress during my bedside evaluation of the patient but her daughters were present for psychological support. She denied any suicidal or homicidal ideation. She denied any headache or dizziness. Her morbidities include COPD, Hypertension, chronic atrial fibrillation, diastolic CHF, and Hyperlilpidemia. Past Medical History Cardiac Medical History: Reports: Atrial Fibrillation, Congestive Heart Failure, Hyperlipidema, Hypertension Renal/ Medical History: Denies: End Stage Renal Disease GI Medical History: Denies: Crohn's Disease, Ulcerative Colitis Musculoskeltal Medical History: Denies: Gout Skin Medical History: Denies: Psoriasis Traumatic Medical History: Denies: Gunshot Wound Hematology: Denies: Sickle Cell Disease Infectious Medical History: Reports: Methicillin-Resistant Staph Aureus Social History Smoking Status: Current Some Day Smoker Cigarettes Packs Per Day: 1 Electronic Cigarette use?: No Frequency of Alcohol Use: None Hx Recreational Drug Use: No Drugs: None Hx Prescription Drug Abuse: No - Advance Directive Resuscitation Status: Full Code Family History Family History: Reviewed & Not Pertinent Parental Family History Reviewed: Yes Children Family History Reviewed: Yes Sibling(s) Family History Reviewed.: Yes Medication/Allergy Home Medications: Tramadol HCl [Ultram 50 mg Tablet] 50 mg PO Q6HP PRN 10/18/18 Amlodipine Besylate/Valsartan [Amlodipine-Valsartan 10-320 mg] 1 tab PO DAILY #30 tablet 10/21/18 Apixaban [Eliquis 5 mg Tablet] 5 mg PO BID #60 tablet 10/21/18 Carvedilol [Coreg 6.25 mg Tablet] 6.25 mg PO Q12 #60 tablet 10/21/18 Fluticasone/Umeclidin/Vilanter [Trelegy 100-62.5-25 Mcg Ellipta 14 Dose/Dpi] 14 inh IH DAILY #2 inhaler 10/21/18 Hydrochlorothiazide [Hydrodiuril 25 mg Tablet] 25 mg PO DAILY #30 tablet 10/21/18 Levalbuterol Tartrate [Xopenex Hfa] 15 gm IH Q6HP PRN #1 hfa.aer.ad 10/21/18 Albuterol Sulfate [Ventolin Hfa 8 gm Mdi (1 Mdi/ER Disp)] 1 puff IH Q4HP PRN 12/13/18 Gabapentin 600 mg PO TID 12/13/18 Allergies/Adverse Reactions: No Known Allergies Allergy (Verified 12/13/18 10:05) Review of Systems Constitutional: ABSENT: chills, fever(s), headache(s), weight gain, weight loss Eyes: ABSENT: visual disturbances Ears: ABSENT: hearing changes Nose, Mouth, and Throat: ABSENT: as per HPI, headache(s), mouth pain, sore throat, vertigo, other Cardiovascular: PRESENT: dyspnea on exertion. ABSENT: as per HPI, chest pain, edema, orthropnea, palpitations, other Respiratory: PRESENT: cough - productive of dirty white sputum as per her dsscription., dyspnea Gastrointestinal: ABSENT: abdominal pain, constipation, diarrhea, hematemesis, hematochezia, nausea, vomiting Genitourinary: ABSENT: dysuria, hematuria Musculoskeletal: ABSENT: joint swelling Integumentary: ABSENT: rash, wounds Neurological: ABSENT: abnormal gait, abnormal speech, confusion, dizziness, focal weakness, syncope Psychiatric: PRESENT: anxiety, depression. ABSENT: as per HPI, hallucinations, homidical ideation, suicidal ideation, other Endocrine: ABSENT: cold intolerance, heat intolerance, polydipsia, polyuria Hematologic/Lymphatic: ABSENT: easy bleeding, easy bruising, lymphadenopathy Allergic/Immunologic: ABSENT: seasonal rhinorrhea Physical Exam Vital Signs: Temp Pulse Resp BP Pulse Ox 98.1 F 87 18 180/88 H 96 12/13/18 16:00 12/13/18 16:00 12/13/18 16:00 12/13/18 16:00 12/13/18 16:00 Intake & Output 12/12/18 12/13/18 12/14/18 06:59 06:59 06:59 Weight 94.6 kg General appearance: PRESENT: mild distress - respiratory distress with suplem ental oxygen via nasal cannula at 2L/min, obese Head exam: PRESENT: atraumatic, normocephalic Eye exam: PRESENT: conjunctiva pink, EOMI, PERRLA. ABSENT: scleral icterus Ear exam: PRESENT: normal external ear exam Mouth exam: PRESENT: moist Teeth exam: PRESENT: poor dentation Throat exam: ABSENT: post pharyngeal erythema, tonsillar erythema, tonsillar exudate, tonsillogmegaly, other Neck exam: PRESENT: full ROM. ABSENT: carotid bruit, JVD, lymphadenopathy, thyromegaly Respiratory exam: PRESENT: decreased breath sounds, rhonchi, wheezes Cardiovascular exam: PRESENT: irregular rhythm Vascular exam: ABSENT: pallor GI/Abdominal exam: PRESENT: normal bowel sounds, soft. ABSENT: distended, guarding, mass, organolmegaly, rebound, tenderness Rectal exam: PRESENT: deferred Extremities exam: ABSENT: pedal edema Neurological exam: PRESENT: alert, awake, oriented to person, oriented to place, oriented to time, oriented to situation, CN II-XII grossly intact. ABSENT: motor sensory deficit Psychiatric exam: PRESENT: appropriate affect, normal mood. ABSENT: homicidal ideation, suicidal ideation Skin exam: PRESENT: dry, warm Results Laboratory Results: 12/13/18 11:22 12/13/18 11:22 12/13/18 12/13/18 12/13/18 11:22 11:22 11:22 WBC 6.4 RBC 4.49 Hgb 12.7 Hct 38.7 MCV 86 MCH 28.3 MCHC 32.8 RDW 14.3 H Plt Count 188 Seg Neutrophils % 61.3 Carbonic Acid 1.44 H HCO3/H2CO3 Ratio 19:1 ABG pH 7.38 ABG pCO2 47.9 H ABG pO2 71.0 L ABG HCO3 28.0 H ABG O2 Saturation 93.9 L ABG Base Excess 2.2 FiO2 2L Sodium 140.9 Potassium 4.1 Chloride 103 Carbon Dioxide 31 H Anion Gap 7 BUN 14 Creatinine 0.70 Est GFR ( Amer) > 60 Glucose 107 Calcium 9.3 Total Bilirubin 0.5 AST 32 Alkaline Phosphatase 93 Total Protein 7.0 Albumin 3.9 Urine Color Urine Appearance Urine pH Ur Specific [place] Urine Protein Urine Glucose (UA) Urine Ketones Urine Blood Urine Nitrite Ur Leukocyte Esterase Urine WBC (Auto) Urine RBC (Auto) 12/13/18 16:04 WBC RBC Hgb Hct MCV MCH MCHC RDW Plt Count Seg Neutrophils % Carbonic Acid HCO3/H2CO3 Ratio ABG pH ABG pCO2 ABG pO2 ABG HCO3 ABG O2 Saturation ABG Base Excess FiO2 Sodium Potassium Chloride Carbon Dioxide Anion Gap BUN Creatinine Est GFR ( Amer) Glucose Calcium Total Bilirubin AST Alkaline Phosphatase Total Protein Albumin Urine Color YELLOW Urine Appearance CLEAR Urine pH 6.0 Ur Specific [place] 1.015 Urine Protein NEGATIVE Urine Glucose (UA) NEGATIVE Urine Ketones NEGATIVE Urine Blood NEGATIVE Urine Nitrite NEGATIVE Ur Leukocyte Esterase NEGATIVE Urine WBC (Auto) 0 Urine RBC (Auto) 1 12/13/18 12/13/18 11:22 11:22 Creatine Kinase 475 H CK-MB (CK-2) 2.71 Troponin I < 0.012 NT-Pro-B Natriuret Pep 442 Impressions: Chest X-Ray 12/13/18 10:15 IMPRESSION: Cardiomegaly without pulmonary edema. Pulmonary artery aneurysm. Stable. Assessment & Plan - Diagnosis (1) COPD with acute exacerbation Is this a current diagnosis for this admission?: Yes Plan: See admitting attending physician orders for details about care plan. (2) Current smoker Is this a current diagnosis for this admission?: Yes Plan: See admitting attending physician orders for details about care plan. (3) Bereavement due to life event Is this a current diagnosis for this admission?: Yes Plan: See admitting attending physician orders for details about care plan. (4) Chronic atrial fibrillation Is this a current diagnosis for this admission?: Yes Plan: See admitting attending physician orders for details about care plan. (5) Chronic diastolic (congestive) heart failure Is this a current diagnosis for this admission?: Yes Plan: See admitting attending physician orders for details about care plan. (6) Hypertension Qualifiers: Hypertension type: essential hypertension Qualified Code(s): I10 - Essential (primary) hypertension Is this a current diagnosis for this admission?: Yes Plan: See admitting attending physician orders for details about care plan. (7) HLD (hyperlipidemia) Qualifiers: Hyperlipidemia type: unspecified Qualified Code(s): E78.5 - Hyperlipidemia, unspecified Is this a current diagnosis for this admission?: Yes Plan: See admitting attending physician orders for details about care plan. - Time Time Spent: 50 to 70 Minutes Smoking Cessation Education: 3 to 10 minutes Medications reviewed and adjusted accordingly: Yes Anticipated discharge: Home with Homehealth Within: Other - Inpatient Certification Based on my medical assessment, after consideration of the patient's comorbidities, presenting symptoms, or acuity I expect that the services needed warrant INPATIENT care.: Yes I certify that my determination is in accordance with my understanding of Medicare's requirements for reasonable and necessary INPATIENT services [42 CFR 412.3e].: Yes Medical Necessity: Significant Comorbidiites Make Outpatient Treatment Too Risky, Need Close Monitoring Due to Risk of Patient Decompensation, Need For IV Fluids, Need For Continuous Telemetry Monitoring, Need for Nebulizer Therapy and Monitoring of Response, Risk of Complication if Not Cared For in Hospital, Risk of Diagnosis Which Will Require Inpatient Eval/Care/Monitoring 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
[2018-12-13] MEDS: GABAPENTIN 300 MG CAPSULE PO SCH (17:42)
[2018-12-13] MEDS: GUAIFENESIN SYRP 200 MG/10 ML UDC PO PRN (17:42)
[2018-12-13] MEDS: APIXABAN 5 MG TABLET PO SCH (17:42)
[2018-12-13] MEDS: IPRATROPIUM/ALBUTEROL 0.5-2.5 MG/3 ML AMPUL NEB PRN (18:29)
[2018-12-13] MEDS ORDERED: VALSARTAN 160 MG TABLET PO ONE (20:30)
[2018-12-13] MEDS ORDERED: AMLODIPINE BESYLATE 10 MG TABLET PO ONE (20:30)
[2018-12-13] MEDS: CARVEDILOL 6.25 MG TABLET PO SCH (23:09)
[2018-12-13] MEDS: LORAZEPAM 0.5 MG TABLET PO PRN (23:09)
[2018-12-13] MEDS: METHYLPREDNISOLONE INJ 125 MG/2 ML SDV IV SCH (23:10)
[2018-12-14 05:30] LABS: ABSOLUTE LYMPHOCYTES (AUTO) 0.9 10^3/uL (0.5-4.7); ABSOLUTE MONOCYTES (AUTO) 0.1 10^3/uL (0.1-1.4); ABSOLUTE NEUT (AUTO) 6.4 10^3/uL (1.7-8.2); BASOPHILS % (AUTO) 0.1 % (0-2); HEMATOCRIT 38.6 % (36.0-47.0); HEMOGLOBIN 12.7 g/dL (12.0-15.5); LYMPHOCYTES % (AUTO) 11.7 % (13-45); MEAN CORPUSCULAR HEMOGLOBIN 28.5 pg (27.0-33.4); MEAN CORPUSCULAR VOLUME 86 fl (80-97); MONOCYTES % (AUTO) 1.3 % (3-13); PLATELET COUNT 192 10^3/uL (150-450); RED BLOOD COUNT 4.47 10^6/uL (3.72-5.28); RED CELL DISTRIBUTION WIDTH 14.3 % (11.5-14.0); SEGMENTED NEUTROPHILS % (AUTO) 86.9 % (42-78); TOTAL CELLS COUNTED % (AUTO) 100 %; WHITE BLOOD COUNT 7.4 10^3/uL (4.0-10.5)
[2018-12-14 05:50] LABS: ALBUMIN 3.7 g/dL (3.5-5.0); ALKALINE PHOSPHATASE 87 U/L (38-126); ANION GAP 5 (5-19); ASPARTATE AMINO TRANSFERASE 25 U/L (14-36); BILIRUBIN,DIRECT 0.1 mg/dL (0.0-0.4); BILIRUBIN,TOTAL 0.5 mg/dL (0.2-1.3); BLOOD UREA NITROGEN 14 mg/dL (7-20); CALCIUM 9.5 mg/dL (8.4-10.2); CARBON DIOXIDE 30 mmol/L (22-30); CHLORIDE 105 mmol/L (98-107); GLUCOSE 141 mg/dL (75-110); POTASSIUM 4.3 mmol/L (3.6-5.0); TOTAL PROTEIN 6.6 g/dL (6.3-8.2)
[2018-12-14] MEDS: METHYLPREDNISOLONE INJ 125 MG/2 ML SDV IV SCH ×3 (05:50→21:01)
[2018-12-14] MEDS: PANTOPRAZOLE SODIUM 40 MG TABLET.DR PO SCH (05:50)
[2018-12-14] MEDS: GUAIFENESIN SYRP 200 MG/10 ML UDC PO PRN ×2 (07:38→20:32)
[2018-12-14] MEDS: AMLODIPINE BESYLATE 10 MG TABLET PO SCH (09:40)
[2018-12-14] MEDS: APIXABAN 5 MG TABLET PO SCH ×2 (09:40→18:12)
[2018-12-14] MEDS: CARVEDILOL 6.25 MG TABLET PO SCH ×2 (09:40→21:02)
[2018-12-14] MEDS: GABAPENTIN 300 MG CAPSULE PO SCH ×3 (09:40→18:12)
[2018-12-14] MEDS: VALSARTAN 160 MG TABLET PO SCH (09:40)
[2018-12-14] MEDS: IPRATROPIUM/ALBUTEROL 0.5-2.5 MG/3 ML AMPUL NEB PRN ×2 (09:57→21:12)
[2018-12-14] MEDS ORDERED: AMLODIPINE BESYLATE 10 MG TABLET PO SCH (10:00)
[2018-12-14] MEDS ORDERED: ENOXAPARIN SODIUM INJ 40 MG/0.4 ML DISP.SYRIN SUBCUT SCH (10:00)
[2018-12-14] MEDS ORDERED: VALSARTAN 160 MG TABLET PO SCH (10:00)
--- NOTE | 2018-12-14 12:09 | PDOC PROGRESS REPORT ---
Subjective Progress Note for:: 12/14/18 Subjective:: Patient continue to demonstrate audible wheezing. Remain on IV Solu Medrol and bronchodilators therapy. Cough with sputum production persist. No reported fever or chills. No nausea or vomiting. Still emotional about son's . Daughter at bedside. Reason For Visit: EXACERBATED COPD,HTN Physical Exam Vital Signs: Temp Pulse Resp BP Pulse Ox 98.1 F 76 18 158/74 H 95 12/14/18 11:48 12/14/18 11:48 12/14/18 11:48 12/14/18 11:48 12/14/18 11:48 Intake & Output 12/13/18 12/14/18 12/15/18 06:59 06:59 06:59 Intake Total 1078 Balance 1078 Weight 97 kg General appearance: PRESENT: mild distress Head exam: PRESENT: atraumatic, normocephalic Eye exam: PRESENT: conjunctiva pink. ABSENT: scleral icterus Ear exam: PRESENT: normal external ear exam Mouth exam: PRESENT: moist Teeth exam: PRESENT: poor dentation Respiratory exam: PRESENT: decreased breath sounds - at lung bases, rhonchi, wheezes Cardiovascular exam: PRESENT: irregular rhythm, +S1, +S2. ABSENT: diastolic murmur, systolic murmur Vascular exam: ABSENT: pallor GI/Abdominal exam: PRESENT: normal bowel sounds, soft. ABSENT: distended, guarding, mass, organolmegaly, rebound, tenderness Extremities exam: ABSENT: pedal edema Neurological exam: PRESENT: alert, awake, oriented to person, oriented to place, oriented to time, oriented to situation, CN II-XII grossly intact. ABSENT: motor sensory deficit Psychiatric exam: PRESENT: anxious, appropriate affect, depressed. ABSENT: homicidal ideation, suicidal ideation Skin exam: PRESENT: dry, warm Results Laboratory Results: 12/14/18 04:26 12/14/18 04:26 12/13/18 12/13/18 12/14/18 11:22 16:04 04:26 WBC 6.4 7.4 RBC 4.49 4.47 Hgb 12.7 12.7 Hct 38.7 38.6 MCV 86 86 MCH 28.3 28.5 MCHC 32.8 33.0 RDW 14.3 H 14.3 H Plt Count 188 192 Seg Neutrophils % 61.3 86.9 H Sodium Potassium Chloride Carbon Dioxide Anion Gap BUN Creatinine Est GFR ( Amer) Glucose Calcium Total Bilirubin AST Alkaline Phosphatase Total Protein Albumin Urine Color YELLOW Urine Appearance CLEAR Urine pH 6.0 Ur Specific [place] 1.015 Urine Protein NEGATIVE Urine Glucose (UA) NEGATIVE Urine Ketones NEGATIVE Urine Blood NEGATIVE Urine Nitrite NEGATIVE Ur Leukocyte Esterase NEGATIVE Urine WBC (Auto) 0 Urine RBC (Auto) 1 12/14/18 04:26 WBC RBC Hgb Hct MCV MCH MCHC RDW Plt Count Seg Neutrophils % Sodium 140.4 Potassium 4.3 Chloride 105 Carbon Dioxide 30 Anion Gap 5 BUN 14 Creatinine 0.66 Est GFR ( Amer) > 60 Glucose 141 H Calcium 9.5 Total Bilirubin 0.5 AST 25 Alkaline Phosphatase 87 Total Protein 6.6 Albumin 3.7 Urine Color Urine Appearance Urine pH Ur Specific [place] Urine Protein Urine Glucose (UA) Urine Ketones Urine Blood Urine Nitrite Ur Leukocyte Esterase Urine WBC (Auto) Urine RBC (Auto) 12/13/18 12/13/18 11:22 11:22 Creatine Kinase 475 H CK-MB (CK-2) 2.71 Troponin I < 0.012 NT-Pro-B Natriuret Pep 442 Impressions: Chest X-Ray 12/13/18 10:15 IMPRESSION: Cardiomegaly without pulmonary edema. Pulmonary artery aneurysm. Stable. Assessment & Plan - Diagnosis (1) COPD with acute exacerbation Is this a current diagnosis for this admission?: Yes (2) Current smoker Is this a current diagnosis for this admission?: Yes (3) Bereavement due to life event Is this a current diagnosis for this admission?: Yes (4) Chronic atrial fibrillation Is this a current diagnosis for this admission?: Yes (5) Chronic diastolic (congestive) heart failure Is this a current diagnosis for this admission?: Yes (6) Hypertension Qualifiers: Hypertension type: essential hypertension Qualified Code(s): I10 - Essential (primary) hypertension Is this a current diagnosis for this admission?: Yes (7) HLD (hyperlipidemia) Qualifiers: Hyperlipidemia type: unspecified Qualified Code(s): E78.5 - Hyperlipidemia, unspecified Is this a current diagnosis for this admission?: Yes - Time Time Spent with patient: 25-34 minutes Medications reviewed and adjusted accordingly: Yes Anticipated discharge: Home with Homehealth - Inpatient Certification Based on my medical assessment, after consideration of the patient's comorbidities, presenting symptoms, or acuity I expect that the services needed warrant INPATIENT care.: Yes I certify that my determination is in accordance with my understanding of Medicare's requirements for reasonable and necessary INPATIENT services [42 CFR 412.3e].: Yes Medical Necessity: Significant Comorbidiites Make Outpatient Treatment Too Risky, Need Close Monitoring Due to Risk of Patient Decompensation, Need For Continuous Telemetry Monitoring, Need for Nebulizer Therapy and Monitoring of Re sponse, Risk of Complication if Not Cared For in Hospital, Risk of Diagnosis Which Will Require Inpatient Eval/Care/Monitoring 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 Start on Spiriva Handihaler 18mcg p.o daily.
[2018-12-14] MEDS: LORAZEPAM 0.5 MG TABLET PO PRN ×2 (12:58→21:01)
[2018-12-14] MEDS: TIOTROPIUM BROMIDE DPI 5 CAP/KIT (18 MCG/CAP) IH SCH (14:39)
[2018-12-14] MEDS: TRAMADOL HCL 50 MG TABLET PO PRN (19:46)
[2018-12-15] MEDS: METHYLPREDNISOLONE INJ 125 MG/2 ML SDV IV SCH ×2 (05:40→13:04)
[2018-12-15] MEDS: PANTOPRAZOLE SODIUM 40 MG TABLET.DR PO SCH (05:41)
[2018-12-15] MEDS: TIOTROPIUM BROMIDE DPI 5 CAP/KIT (18 MCG/CAP) IH SCH (09:38)
[2018-12-15] MEDS: TRAMADOL HCL 50 MG TABLET PO PRN (09:38)
[2018-12-15] MEDS: GUAIFENESIN SYRP 200 MG/10 ML UDC PO PRN (09:38)
[2018-12-15] MEDS: AMLODIPINE BESYLATE 10 MG TABLET PO SCH (09:38)
[2018-12-15] MEDS: VALSARTAN 160 MG TABLET PO SCH (09:39)
[2018-12-15] MEDS: GABAPENTIN 300 MG CAPSULE PO SCH ×3 (09:39→17:39)
[2018-12-15] MEDS: APIXABAN 5 MG TABLET PO SCH ×2 (09:39→17:39)
[2018-12-15] MEDS: CARVEDILOL 6.25 MG TABLET PO SCH ×2 (09:39→22:00)
[2018-12-15] MEDS: LORAZEPAM 0.5 MG TABLET PO PRN ×2 (11:41→22:01)
--- NOTE | 2018-12-15 18:53 | PDOC PROGRESS REPORT ---
Subjective Progress Note for:: 12/15/18 Subjective:: Patient reported improvement in her wheezing. Remain on IV Solu Medrol, bronchodilators therapy and started on Spiriva handihaler. No reported fever or chills. No nausea or vomiting. Reason For Visit: EXACERBATED COPD,HTN Physical Exam Vital Signs: Temp Pulse Resp BP Pulse Ox 98.7 F 69 18 149/79 H 96 12/15/18 16:00 12/15/18 16:00 12/15/18 16:00 12/15/18 16:00 12/15/18 16:00 Intake & Output 12/14/18 12/15/18 12/16/18 06:59 06:59 06:59 Intake Total 1078 1362 700 Balance 1078 1362 700 Weight 97 kg 97 kg Physical Exam: General appearance: PRESENT: mild distress Head exam: PRESENT: atraumatic, normocephalic Eye exam: PRESENT: conjunctiva pink. ABSENT: pallor, scleral icterus Ear exam: PRESENT: normal external ear exam Mouth exam: PRESENT: moist Teeth exam: PRESENT: poor dentition Respiratory exam: PRESENT: decreased breath sounds - at lung bases, minimal end expiratory rhonchi Cardiovascular exam: PRESENT: irregular rhythm, +S1, +S2. ABSENT: diastolic murmur, systolic murmur GI/Abdominal exam: PRESENT: normal bowel sounds, soft. ABSENT: distended, guarding, mass, organomegaly, rebound, tenderness Extremities exam: ABSENT: pedal edema Neurological exam: PRESENT: alert, awake, oriented to person, oriented to place, oriented to time, oriented to situation, CN II-XII grossly intact. ABSENT: motor sensory deficit Psychiatric exam: PRESENT: appropriate affect. ABSENT: homicidal ideation, s uicidal ideation Skin exam: PRESENT: dry, warm Results Laboratory Results: 12/14/18 04:26 12/14/18 04:26 12/13/18 12/13/18 11:22 11:22 Creatine Kinase 475 H CK-MB (CK-2) 2.71 Troponin I < 0.012 NT-Pro-B Natriuret Pep 442 Impressions: Chest X-Ray 12/13/18 10:15 IMPRESSION: Cardiomegaly without pulmonary edema. Pulmonary artery aneurysm. Stable. Assessment & Plan - Diagnosis (1) COPD with acute exacerbation Is this a current diagnosis for this admission?: Yes (2) Current smoker Is this a current diagnosis for this admission?: Yes (3) Bereavement due to life event Is this a current diagnosis for this admission?: Yes (4) Chronic atrial fibrillation Is this a current diagnosis for this admission?: Yes (5) Chronic diastolic (congestive) heart failure Is this a current diagnosis for this admission?: Yes (6) Hypertension Qualifiers: Hypertension type: essential hypertension Qualified Code(s): I10 - Essential (primary) hypertension Is this a current diagnosis for this admission?: Yes (7) HLD (hyperlipidemia) Qualifiers: Hyperlipidemia type: unspecified Qualified Code(s): E78.5 - Hyperlipidemia, unspecified Is this a current diagnosis for this admission?: Yes - Time Time Spent with patient: 25-34 minutes Medications reviewed and adjusted accordingly: Yes Anticipated discharge: Home with Homehealth Within: Other - Inpatient Certification Based on my medical assessment, after consideration of the patient's comorbidities, presenting symptoms, or acuity I expect that the services needed warrant INPATIENT care.: Yes I certify that my determination is in accordance with my understanding of Medicare's requirements for reasonable and necessary INPATIENT services [42 CFR 412.3e].: Yes Medical Necessity: Significant Comorbidiites Make Outpatient Treatment Too Risky, Need Close Monitoring Due to Risk of Patient Decompensation, Need For IV Fluids, Need For Continuous Telemetry Monitoring, Need for Nebulizer Therapy and Monitoring of Response, Risk of Complication if Not Cared For in Hospital, Risk of Diagnosis Which Will Require Inpatient Eval/Care/Monitoring 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 Start on oral Prednisone tapering dose regimen. Maintain on all other current medication management.
[2018-12-16] MEDS: PANTOPRAZOLE SODIUM 40 MG TABLET.DR PO SCH (05:47)
[2018-12-16] MEDS: AMLODIPINE BESYLATE 10 MG TABLET PO SCH (09:41)
[2018-12-16] MEDS: VALSARTAN 160 MG TABLET PO SCH (09:41)
[2018-12-16] MEDS: APIXABAN 5 MG TABLET PO SCH (09:41)
[2018-12-16] MEDS: GABAPENTIN 300 MG CAPSULE PO SCH (09:41)
[2018-12-16] MEDS: CARVEDILOL 6.25 MG TABLET PO SCH (09:41)
[2018-12-16] MEDS ORDERED: PREDNISONE 20 MG TABLET PO SCH (10:00)
[2018-12-16] MEDS: TIOTROPIUM BROMIDE DPI 5 CAP/KIT (18 MCG/CAP) IH SCH (10:25)
[2018-12-16 12:21] VITALS: BP 142/70
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
[2018-12-16] MEDS ORDERED: INFLUENZA QUAD (6MOS+) 2019-20 VAC 0.5 ML SYR IM ONE (13:15)
== END 2018-12-16 13:30 | disposition home or self-care (01) | DRG 191 ==
LOC: ER 10:00 → EH 12:28 → 3N 15:30
PROVIDERS: ADMIT Internal Medicine Geriatric Medicine; ATTEND Internal Medicine Geriatric Medicine
DX: J44.1 Chronic obstructive pulmonary disease with (acute) exacerbation (principal); I48.20 Chronic atrial fibrillation, unspecified; I50.32 Chronic diastolic (congestive) heart failure; I10 Essential (primary) hypertension; I11.0 Hypertensive heart disease with heart failure; E78.5 Hyperlipidemia, unspecified; F17.210 Nicotine dependence, cigarettes, uncomplicated; E78.00 Pure hypercholesterolemia, unspecified; Z23 Encounter for immunization; Z63.4 Disappearance and death of family member
CPT/HCPCS: 36415; 71045; 80053; 81001; 82550; 82553; 82803; 82962; 83880; 84484; 85025; 90686; 93005; 93010; 94640; 96374; 96375; 99285; J2060; J2930; J3490; J7512; J7620

== ENCOUNTER 2019-01-19 15:05 | Emergency (ER) | payer OTHER, MEDICARE ==
[2019-01-19] MEDS ORDERED: ALBUTEROL SULFATE 0.083% NEB 2.5 MG/3 ML AMPUL NEB ONE (15:23)
[2019-01-19] MEDS ORDERED: METHYLPREDNISOLONE INJ 125 MG/2 ML SDV IV ONE (15:23)
[2019-01-19] MEDS ORDERED: IPRATROPIUM/ALBUTEROL 0.5-2.5 MG/3 ML AMPUL NEB ONE ×2 (15:23→17:31)
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
[2019-01-19 16:19] LABS: APPEARANCE,URINE CLOUDY; BILIRUBIN,URINE SMALL (NEGATIVE); COLOR,URINE AMBER; GLUCOSE, URINE NEGATIVE (NEGATIVE); KETONES,URINE TRACE mg/dL (NEGATIVE); PROTEIN,URINE 30 mg/dL (NEGATIVE); URINE SPECIFIC GRAVITY 1.023
--- NOTE | 2019-01-19 17:00 | RADIOLOGY REPORT (SQ) ---
EXAM DESCRIPTION: CHEST 2 VIEWS COMPLETED DATE/TIME: 01/19/2019 4:11 pm REASON FOR STUDY: cough, sob COMPARISON: 12/13/2018 EXAM PARAMETERS: NUMBER OF VIEWS: two views TECHNIQUE: Digital Frontal and Lateral radiographic views of the chest acquired. RADIATION DOSE: NA LIMITATIONS: none FINDINGS: LUNGS AND PLEURA: No opacities, masses or pneumothorax. No pleural effusion. MEDIASTINUM AND HILAR STRUCTURES: No masses or contour abnormalities. 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 Heart upper normal size. No overt failure. BONES: No acute findings. HARDWARE: None in the chest. OTHER: No other significant finding. IMPRESSION: Stable appearance. TECHNICAL DOCUMENTATION: JOB ID: [id number] [employer]- All Rights Reserved Reading location - IP/workstation name: [email or web address]
--- NOTE | 2019-01-19 17:01 | RADIOLOGY REPORT (SQ) ---
EXAM DESCRIPTION: L SPINE WHOLE COMPLETED DATE/TIME: 01/19/2019 4:11 pm REASON FOR STUDY: low back pain COMPARISON: None. NUMBER OF VIEWS: Five views including obliques. TECHNIQUE: AP, lateral, oblique, and sacral radiographic images acquired of the lumbar spine. LIMITATIONS: None. FINDINGS: MINERALIZATION: Normal. SEGMENTATION: Normal. No transitional anatomy. ALIGNMENT: Normal. VERTEBRAE: Maintained height. No fracture or worrisome bone lesion. DISCS: Disc space narrowing with osteophytes L3-4, L4-5, L5-S1. POSTERIOR ELEMENTS: Pedicles and facets are intact. No pars defect or posterior arch defects. HARDWARE: None in the spine. PARASPINAL SOFT TISSUES: Normal. PELVIS: Intact as visualized. No fractures or worrisome bone lesions. SI joints intact. OTHER: No other significant finding. IMPRESSION: Multilevel degenerative disc disease. L3-4, L4-5, L5-S1. No change. TECHNICAL DOCUMENTATION: JOB ID: [id number] [employer]- All Rights Reserved Reading location - IP/workstation name: [email or web address]
[2019-01-19] MEDS ORDERED: TRAMADOL HCL 50 MG TABLET PO ONE (17:31)
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
[2019-01-19 18:16] LABS: ABSOLUTE EOSINOPHILS # (AUTO) 0.2 10^3/uL (0.0-0.6); ABSOLUTE LYMPHOCYTES (AUTO) 2.6 10^3/uL (0.5-4.7); ABSOLUTE MONOCYTES (AUTO) 0.8 10^3/uL (0.1-1.4); ABSOLUTE NEUT (AUTO) 5.3 10^3/uL (1.7-8.2); BASOPHILS % (AUTO) 0.5 % (0-2); EOSINOPHILS % (AUTO) 2.6 % (0-6); HEMATOCRIT 45.4 % (36.0-47.0); HEMOGLOBIN 15.1 g/dL (12.0-15.5); LYMPHOCYTES % (AUTO) 28.8 % (13-45); MEAN CORPUSCULAR HEMOGLOBIN 28.9 pg (27.0-33.4); MEAN CORPUSCULAR HGB CONC 33.2 g/dL (32.0-36.0); MEAN CORPUSCULAR VOLUME 87 fl (80-97); MONOCYTES % (AUTO) 9.2 % (3-13); PLATELET COUNT 157 10^3/uL (150-450); RED CELL DISTRIBUTION WIDTH 14.2 % (11.5-14.0); SEGMENTED NEUTROPHILS % (AUTO) 58.9 % (42-78); TOTAL CELLS COUNTED % (AUTO) 100 %; WHITE BLOOD COUNT 9.1 10^3/uL (4.0-10.5)
[2019-01-19 18:22] LABS: ALBUMIN 4.4 g/dL (3.5-5.0); ALKALINE PHOSPHATASE 93 U/L (38-126); ANION GAP 9 (5-19); ASPARTATE AMINO TRANSFERASE 23 U/L (14-36); BILIRUBIN,DIRECT 0.1 mg/dL (0.0-0.4); BILIRUBIN,TOTAL 0.9 mg/dL (0.2-1.3); BLOOD UREA NITROGEN 14 mg/dL (7-20); CALCIUM 9.7 mg/dL (8.4-10.2); CARBON DIOXIDE 28 mmol/L (22-30); CHLORIDE 103 mmol/L (98-107); GLUCOSE 101 mg/dL (75-110); POTASSIUM 4.1 mmol/L (3.6-5.0); TOTAL PROTEIN 7.7 g/dL (6.3-8.2)
[2019-01-19] MEDS ORDERED: ASPIRIN 325 MG TABLET PO ONE (19:14)
[2019-01-19] MEDS ORDERED: HYDROCODONE/ACETAMINOPHEN 5-325 MG (6 TAB/ER DISP) PO PRN (22:04)
[2019-01-19 22:17] VITALS: BP 158/111
== END 2019-01-19 22:17 | disposition home or self-care (01) ==
LOC: ER 15:05
DX: M54.5 Low back pain (principal); V49.9XXA Car occupant (driver) (passenger) injured in unspecified traffic accident, initial encounter; J44.9 Chronic obstructive pulmonary disease, unspecified; K21.9 Gastro-esophageal reflux disease without esophagitis; I10 Essential (primary) hypertension; R06.02 Shortness of breath; Z79.899 Other long term (current) drug therapy
CPT/HCPCS: 36415; 85025; 80053; 81001; 84484; 71046; 72110; J7620